=== PATIENT | female | born 1970 | race Caucasian/White ===

== ENCOUNTER 2016-11-25 15:27 | Emergency (ER) | payer MEDICAID, MEDICARE, OTHER ==
[2016-11-25] MEDS ORDERED: ALBUTEROL SULFATE 0.083% NEB 2.5 MG/3 ML AMPUL NEB ONE (16:09)
--- NOTE | 2016-11-25 16:09 | ER Document Report ---
ED Medical Screen (RME) - General Stated Complaint: HEAD ACHE Notes: Patient reports having sinus congestion that started Monday. Has had a bad headache for the last 3 days. Has had a fever on and off, with dizzy spells. Reports swelling on left side of face. Patient denies vomiting or diarrhea. States she has a history of sinus infections. I have greeted and performed a rapid initial assessment of this patient. A comprehensive ED assessment and evaluation of the patient, analysis of test results and completion of the medical decision making process will be conducted by additional ED providers. TRAVEL OUTSIDE OF THE [place] IN LAST 30 DAYS: No - Related Data Allergies/Adverse Reactions: adhesive [Adhesive] Allergy (Verified 11/25/16 16:08) cephalexin monohydrate [From Keflex] Allergy (Verified 11/25/16 16:08) cholestyramine [From Questran] Allergy (Verified 11/25/16 16:08) ciprofloxacin [From Cipro] Allergy (Verified 11/25/16 16:08) ciprofloxacin HCl [From Cipro] Allergy (Verified 11/25/16 16:08) lanolin alcohols [Wool Alcohols] Allergy (Verified 11/25/16 16:08) latex [Latex] Allergy (Verified 11/25/16 16:08) nickel [Nickel] Allergy (Verified 11/25/16 16:08) Nyhwnlt-Mni-Lix Reductase Inhibitor Allergy (Verified 11/25/16 16:08) Sucrose [From Questran] Allergy (Verified 11/25/16 16:08) Sulfa (Sulfonamide Antibiotics) Allergy (Verified 11/25/16 16:08) trazodone [Trazodone] Allergy (Verified 11/25/16 16:08) Past Medical History - Past Medical History Cardiac Medical History: Reports: Hx Hypercholesterolemia, Hx Hypertension Pulmonary Medical History: Reports: Hx Pneumonia, Hx Sleep Apnea Neurological Medical History: Reports: Hx Migraine, Hx Seizures Endocrine Medical History: Reports: Hx Hypothyroidism Musculoskeltal Medical History: Reports Hx Arthritis, Reports Hx Fibromyalgia Psychiatric Medical History: Reports: Hx Anxiety - Takes clonazepam has been on several other benzos in the past, Hx Attention Deficit Hyperactivity Disorder - Takes Vyvanse Past Surgical History: Reports: Hx Section - x1, Hx Cholecystectomy, Hx Hysterectomy, Hx Orthopedic Surgery - back x2 - Immunizations Hx Diphtheria, Pertussis, Tetanus Vaccination: Yes Physical Exam - Vital signs Vitals: Temp Pulse Resp BP Pulse Ox 100.6 F H 91 16 127/58 H 93 11/25/16 15:47 11/25/16 15:47 11/25/16 15:47 11/25/16 15:47 11/25/16 15:47 - Respiratory Respiratory status: No respiratory distress Breath sounds: Normal - deep breathing causes pt to start coughing. Course - Vital Signs Vital signs: Temp Pulse Resp BP Pulse Ox 100.6 F H 91 16 127/58 H 93 11/25/16 15:47 11/25/16 15:47 11/25/16 15:47 11/25/16 15:47 11/25/16 15:47
[2016-11-25] MEDS ORDERED: ACETAMINOPHEN 325 MG TABLET PO ONE (16:45)
--- NOTE | 2016-11-25 17:11 | ER Document Report ---
ED ENT - General Chief Complaint: Sinus Congestion Stated Complaint: HEAD ACHE Notes: The patient is a 46-year-old female who presents with 1 day of fever, left sided facial swelling, dental pain, dry cough and nasal congestion. She tried using saline spray without much relief of her symptoms. The dental pain started after she had the facial swelling and fever. She denies a cracked tooth , blurry vision, neck stiffness, numbness, tingling, chest pain or shortness of breath. TRAVEL OUTSIDE OF THE [place] IN LAST 30 DAYS: No - Related Data Allergies/Adverse Reactions: adhesive [Adhesive] Allergy (Verified 11/25/16 16:08) cephalexin monohydrate [From Keflex] Allergy (Verified 11/25/16 16:08) cholestyramine [From Questran] Allergy (Verified 11/25/16 16:08) ciprofloxacin [From Cipro] Allergy (Verified 11/25/16 16:08) ciprofloxacin HCl [From Cipro] Allergy (Verified 11/25/16 16:08) lanolin alcohols [Wool Alcohols] Allergy (Verified 11/25/16 16:08) latex [Latex] Allergy (Verified 11/25/16 16:08) nickel [Nickel] Allergy (Verified 11/25/16 16:08) Ligmcby-Zkr-Mif Reductase Inhibitor Allergy (Verified 11/25/16 16:08) Sucrose [From Questran] Allergy (Verified 11/25/16 16:08) Sulfa (Sulfonamide Antibiotics) Allergy (Verified 11/25/16 16:08) trazodone [Trazodone] Allergy (Verified 11/25/16 16:08) Past Medical History - General Information source: Patient - Social History Smoking Status: Current Every Day Smoker Chew tobacco use (# tins/day): No Frequency of alcohol use: None Drug Abuse: None Family History: Reviewed & Not Pertinent Patient has suicidal ideation: No Patient has homicidal ideation: No - Past Medical History Cardiac Medical History: Reports: Hx Hypercholesterolemia, Hx Hypertension Pulmonary Medical History: Reports: Hx Pneumonia, Hx Sleep Apnea Neurological Medical History: Reports: Hx Migraine, Hx Seizures Endocrine Medical History: Reports: Hx Hypothyroidism Renal/ Medical History: Denies: Hx Peritoneal Dialysis Musculoskeltal Medical History: Reports Hx Arthritis, Reports Hx Fibromyalgia Psychiatric Medical History: Reports: Hx Anxiety - Takes clonazepam has been on several other benzos in the past, Hx Attention Deficit Hyperactivity Disorder - Takes Madhuri Past Surgical History: Reports: Hx Section - x1, Hx Cholecystectomy, Hx Hysterectomy, Hx Orthopedic Surgery - back x2 - Immunizations Hx Diphtheria, Pertussis, Tetanus Vaccination: Yes Review of Systems - Review of Systems Notes: REVIEW OF SYSTEMS: CONSTITUTIONAL: -fevers, -chills EENT: -eye pain, -difficulty swallowing, +nasal congestion, +dental pain CARDIOVASCULAR: -chest pain, -syncope. RESPIRATORY: +cough, -SOB GASTROINTESTINAL: -abdominal pain, -nausea, -vomiting, -diarrhea GENITOURINARY: -dysuria, -hematuria MUSCULOSKELETAL: -back pain, -neck pain SKIN: -rash or skin lesions. HEMATOLOGIC: -easy bruising or bleeding. LYMPHATIC: -swollen, enlarged glands. NEUROLOGICAL: -altered mental status or loss of consciousness, -headache, - neurologic symptoms PSYCHIATRIC: -anxiety, -depression. ALL OTHER SYSTEMS REVIEWED AND NEGATIVE. Physical Exam - Vital signs Vitals: Temp Pulse Resp BP Pulse Ox 100.6 F H 91 16 127/58 H 93 11/25/16 15:47 11/25/16 15:47 11/25/16 15:47 11/25/16 15:47 11/25/16 15:47 - Notes Notes: PHYSICAL EXAMINATION: GENERAL: Well-appearing, well-nourished and in no acute distress. HEAD: Atraumatic, normocephalic. EYES: Pupils equal round and reactive to light, extraocular movements intact, sclera anicteric, conjunctiva are normal. ENT: Left-sided maxillary sinus tenderness and swelling, nares patent, oropharynx clear without exudates. Moist mucous membranes. NECK: Normal range of motion, supple without lymphadenopathy LUNGS: Breath sounds clear to auscultation bilaterally and equal. No wheezes rales or rhonchi. HEART: Regular rate and rhythm without murmurs ABDOMEN: Soft, nontender, normoactive bowel sounds. No guarding, no rebound. No masses appreciated. EXTREMITIES: Normal range of motion, no pitting or edema. No cyanosis. NEUROLOGICAL: Cranial nerves grossly intact. Normal speech, normal gait. Normal sensory, motor, and reflex exams. PSYCH: Normal mood, normal affect. SKIN: Warm, Dry, normal turgor, no rashes or lesions noted. Course - Re-evaluation Re-evalutation: Patient appears well. No evidence of dental abscess. With fevers, sinus congestion and maxillary sinus tenderness, will treat for sinusitis causing fever with antibiotics. Instructed her about sinus rinses and following up with primary care physician. - Vital Signs Vital signs: Temp Pulse Resp BP Pulse Ox 99.9 F 95 16 125/71 92 11/25/16 17:50 11/25/16 17:50 11/25/16 17:50 11/25/16 17:50 11/25/16 17:50 - Laboratory Result Diagrams: 11/25/16 16:50 11/25/16 16:50 Laboratory results interpreted by me: 11/25/16 11/25/16 16:50 16:50 WBC 10.7 H Glucose 130 H AST 58 H ALT 75 H Discharge - Discharge Clinical Impression: Sinus infection Qualifiers: Sinusitis location: unspecified location Chronicity: unspecified Qualified Code (s): J32.9 - Chronic sinusitis, unspecified Condition: Stable Disposition: HOME, SELF-CARE Additional Instructions: Take the full course of antibiotics. Follow-up with the dentist. Use the sinus rinse and take Tylenol and Motrin to help with any fevers and pain. Sinusitis You have sinusitis, an infection of the sinus cavities of the face. The sinuses are air-filled chambers which open into the inside of the nose. Bacteria and pus fill a sinus, causing pain, drainage, and fever. Sinusitis is treated with antibiotics. Often, expectorants (to thin the sinus mucous) or decongestants (to reduce swelling) are prescribed as well. Healing requires seven to 10 days. Avoid chemical fumes, pollens, dusts, and smoke (especially cigarette smoke ). Keep the air humidified in your bedroom and work area and take plenty of liquids by mouth. This condition can be serious if the infection spreads. If your symptoms worsen, or if you develop severe headache, high fever, stiff neck, or a rash, you must call the doctor or return for re-evaluation. Prescriptions: Clindamycin HCl 300 mg PO Q8H 7 Days Referrals: SONIDO FELIPE PA [Primary Care Provider] - Follow up as needed
[2016-11-25 17:16] LABS: ABSOLUTE BASOPHILS # (AUTO) 0.1 10^3/uL (0.0-0.2); ABSOLUTE EOSINOPHILS # (AUTO) 0.1 10^3/uL (0.0-0.6); ABSOLUTE LYMPHOCYTES (AUTO) 1.8 10^3/uL (0.5-4.7); ABSOLUTE MONOCYTES (AUTO) 0.8 10^3/uL (0.1-1.4); ABSOLUTE NEUT (AUTO) 7.9 10^3/uL (1.7-8.2); BASOPHILS % (AUTO) 0.5 % (0-2); EOSINOPHILS % (AUTO) 0.9 % (0-6); HEMATOCRIT 40.2 % (36.0-47.0); HEMOGLOBIN 13.9 g/dL (12.0-15.5); HGB HCT DIFFERENCE 1.5; LYMPHOCYTES % (AUTO) 17.2 % (13-45); MEAN CORPUSCULAR HEMOGLOBIN 30.5 pg (27.0-33.4); MEAN CORPUSCULAR HGB CONC 34.5 g/dL (32.0-36.0); MEAN CORPUSCULAR VOLUME 88 fl (80-97); MONOCYTES % (AUTO) 7.8 % (3-13); RED BLOOD COUNT 4.56 10^6/uL (3.72-5.28); RED CELL DISTRIBUTION WIDTH 12.8 % (11.5-14.0); SEGMENTED NEUTROPHILS % (AUTO) 73.6 % (42-78); WHITE BLOOD COUNT 10.7 10^3/uL (4.0-10.5)
[2016-11-25 17:17] LABS: ALANINE AMINOTRANSFERASE 75 U/L (9-52); ALKALINE PHOSPHATASE 94 U/L (38-126); ANION GAP 16 (5-19); ASPARTATE AMINO TRANSFERASE 58 U/L (14-36); BILIRUBIN,TOTAL 0.3 mg/dL (0.2-1.3); BLOOD UREA NITROGEN 15 mg/dL (7-20); CALCIUM 9.2 mg/dL (8.4-10.2); CARBON DIOXIDE 23 mmol/L (22-30); CHLORIDE 99 mmol/L (98-107); CREATININE RESULT 0.73 mg/dL (0.52-1.25); GLUCOSE 130 mg/dL (75-110); TOTAL PROTEIN 6.6 g/dL (6.3-8.2)
[2016-11-25] MEDS ORDERED: CLINDAMYCIN HCL 150 MG CAPSULE PO ONE (17:35)
[2016-11-25 17:55] VITALS: BP 125/71
== END 2016-11-25 17:55 | disposition home or self-care (01) ==
LOC: ER 15:27
DX: J32.9 Chronic sinusitis, unspecified (principal); R50.9 Fever, unspecified; K08.89 Other specified disorders of teeth and supporting structures; R05 Cough; R09.81 Nasal congestion; F17.200 Nicotine dependence, unspecified, uncomplicated; I10 Essential (primary) hypertension; Z91.048 Other nonmedicinal substance allergy status; Z88.1 Allergy status to other antibiotic agents; Z91.040 Latex allergy status; Z88.8 Allergy status to other drugs, medicaments and biological substances; Z88.2 Allergy status to sulfonamides; Z87.01 Personal history of pneumonia (recurrent)
CPT/HCPCS: 94640; 99283; 36415; 85025; 80053; 71020; A9270 ×3

== ENCOUNTER 2016-11-27 22:19 | Inpatient (IN) | payer MEDICARE ==
--- NOTE | 2016-11-27 22:31 | ER Document Report ---
ED Respiratory Problem - General Stated Complaint: DIFFICULTY BREATHING Time seen by provider: 22:31 Mode of Arrival: Medic Information source: Patient TRAVEL OUTSIDE OF THE [place] IN LAST 30 DAYS: No - HPI Patient complains to provider of: Cough, Short of breath Onset: Last week Duration: Worse/persistent Quality of pain: No pain Severity: Severe Context: Smoker Short of Breath: Severe Chest pain/discomfort: Tightness Cough: Nonproductive Associated symptoms: Congestion, Cough, Difficulty breathing, Fever, Short of breath Similar symptoms previously: Yes Recently seen / treated by doctor: Yes Notes: 38-year-old female presents to the emergency room via EMS with complaints of difficulty breathing and nonproductive cough as well as fever that's been worsening over the past week, she was seen in this emergency room recently and placed on antibiotics for dental infection, but reports her respiratory symptoms of gotten significantly worse, she denies any chest pain, no nausea, vomiting or diarrhea, patient is a smoker, patient placed on BiPAP immediately upon arrival, EMS reports they gave breathing treatments, IV Solu-Medrol, IV magnesium 2 g in route - Related Data Allergies/Adverse Reactions: adhesive [Adhesive] Allergy (Verified 11/25/16 16:08) cephalexin monohydrate [From Keflex] Allergy (Verified 11/25/16 16:08) cholestyramine [From Questran] Allergy (Verified 11/25/16 16:08) ciprofloxacin [From Cipro] Allergy (Verified 11/25/16 16:08) ciprofloxacin HCl [From Cipro] Allergy (Verified 11/25/16 16:08) lanolin alcohols [Wool Alcohols] Allergy (Verified 11/25/16 16:08) latex [Latex] Allergy (Verified 11/25/16 16:08) nickel [Nickel] Allergy (Verified 11/25/16 16:08) Eeugfjp-Jgq-Gak Reductase Inhibitor Allergy (Verified 11/25/16 16:08) Sucrose [From Questran] Allergy (Verified 11/25/16 16:08) Sulfa (Sulfonamide Antibiotics) Allergy (Verified 11/25/16 16:08) trazodone [Trazodone] Allergy (Verified 11/25/16 16:08) Past Medical History - General Information source: Patient, Emergency Med Personnel - Social History Smoking Status: Current Every Day Smoker Family History: Reviewed & Not Pertinent - Past Medical History Cardiac Medical History: Reports: Hx Hypercholesterolemia, Hx Hypertension Pulmonary Medical History: Reports: Hx Pneumonia, Hx Sleep Apnea Neurological Medical History: Reports: Hx Migraine, Hx Seizures Endocrine Medical History: Reports: Hx Hypothyroidism Renal/ Medical History: Denies: Hx Peritoneal Dialysis Musculoskeltal Medical History: Reports Hx Arthritis, Reports Hx Fibromyalgia Psychiatric Medical History: Reports: Hx Anxiety - Takes clonazepam has been on several other benzos in the past, Hx Attention Deficit Hyperactivity Disorder - Takes Vyvanse Past Surgical History: Reports: Hx Section - x1, Hx Cholecystectomy, Hx Hysterectomy, Hx Orthopedic Surgery - back x2 - Immunizations Hx Diphtheria, Pertussis, Tetanus Vaccination: Yes Review of Systems - Review of Systems Constitutional: No symptoms reported EENT: No symptoms reported Cardiovascular: No symptoms reported Respiratory: See HPI Gastrointestinal: No symptoms reported Genitourinary: No symptoms reported Female Genitourinary: No symptoms reported Musculoskeletal: No symptoms reported Skin: No symptoms reported Hematologic/Lymphatic: No symptoms reported Neurological/Psychological: No symptoms reported -: Yes All other systems reviewed and negative Physical Exam - Vital signs Vitals: Pulse Ox 96 11/27/16 22:24 Interpretation: Tachycardic, Hypoxic, Tachypneic - General General appearance: Alert In distress: Moderate - HEENT Head: Normocephalic, Atraumatic Eyes: Normal Pupils: PERRL - Respiratory Respiratory status: Respiratory distress Chest status: Nontender Breath sounds: Decreased air movement, Nonproductive cough, Wheezing Chest palpation: Normal - Cardiovascular Rhythm: Regular, Tachycardia Heart sounds: Normal auscultation Murmur: No - Abdominal Inspection: Normal, Obese Distension: No distension Bowel sounds: Normal Tenderness: Nontender Organomegaly: No organomegaly - Back Back: Normal, Nontender - Extremities General upper extremity: Normal inspection, Nontender, Normal color, Normal ROM , Normal temperature General lower extremity: Normal inspection, Nontender, Normal color, Normal ROM , Normal temperature, Normal weight bearing. No: Stevan's sign - Neurological Neuro grossly intact: Yes Cognition: Normal Orientation: AAOx4 Angelita Coma Scale Eye Opening: Spontaneous Angelita Coma Scale Verbal: Oriented Angelita Coma Scale Motor: Obeys Commands [place] Coma Scale Total: 15 Speech: Normal Motor strength normal: LUE, RUE, LLE, RLE Sensory: Normal - Psychological Associated symptoms: Normal affect, Normal mood - Skin Skin Temperature: Warm Skin Moisture: Dry Skin Color: Normal Course - Re-evaluation Re-evalutation: 11/28/16 03:32 Patient reports feeling much better, BiPAP was removed approximately 2 hours after arrival in the department, she was placed on 2 L nasal cannula and she reports doing much better, she does continue to have some mild wheezing bilaterally, chest x-ray is consistent with pneumonia, patient was started on antibiotics and discussed with the hospitalist who agrees to admit for further evaluation and treatment - Vital Signs Vital signs: Temp Pulse Resp BP Pulse Ox 98.0 F 16 102/81 95 11/28/16 03:00 11/28/16 02:01 11/28/16 01:01 11/28/16 03:17 - Laboratory Result Diagrams: 11/27/16 22:30 11/27/16 22:30 Laboratory results interpreted by me: 11/27/16 11/27/16 11/28/16 22:30 22:30 01:00 WBC 16.7 H Seg Neutrophils % 78.2 H Absolute Neutrophils 13.0 H Sodium 136.4 L Glucose 136 H POC Glucose 179 H ALT 56 H - Diagnostic Test Radiology reviewed: Image reviewed, Reports reviewed - Transfer of Care Care transferred to following provider: Dr. Pearl Critical Care Note - Critical Care Note Total time excluding time spent on procedures (mins): 45 Comments: Patient arrived to the emergency room in respiratory distress requiring BiPAP placement, multiple breathing treatments, and admission to the hospital service Discharge - Discharge Clinical Impression: Pneumonia Qualifiers: Pneumonia type: due to unspecified organism Laterality: bilateral Lung location : unspecified part of lung Qualified Code(s): J18.9 - Pneumonia, unspecified organism Acute asthma exacerbation Qualifiers: Asthma severity: moderate persistent Qualified Code(s): J45.41 - Moderate persistent asthma with (acute) exacerbation Condition: Fair Disposition: ADMITTED INPATIENT Admitting Provider: Hospitalist Unit Admitted: Telemetry
[2016-11-27] MEDS ORDERED: MAGNESIUM SULFATE/D5W 1 GM/100 ML RTUPB IV ONE (22:32)
[2016-11-27 22:52] LABS: ABSOLUTE BASOPHILS # (AUTO) 0.1 10^3/uL (0.0-0.2); ABSOLUTE EOSINOPHILS # (AUTO) 0.2 10^3/uL (0.0-0.6); ABSOLUTE LYMPHOCYTES (AUTO) 2.3 10^3/uL (0.5-4.7); BASOPHILS % (AUTO) 0.5 % (0-2); EOSINOPHILS % (AUTO) 1.2 % (0-6); HEMATOCRIT 38.7 % (36.0-47.0); HEMOGLOBIN 13.2 g/dL (12.0-15.5); HGB HCT DIFFERENCE 0.9; LYMPHOCYTES % (AUTO) 13.9 % (13-45); MEAN CORPUSCULAR HEMOGLOBIN 30.1 pg (27.0-33.4); MEAN CORPUSCULAR HGB CONC 34.3 g/dL (32.0-36.0); MEAN CORPUSCULAR VOLUME 88 fl (80-97); MONOCYTES % (AUTO) 6.2 % (3-13); RED BLOOD COUNT 4.41 10^6/uL (3.72-5.28); RED CELL DISTRIBUTION WIDTH 12.7 % (11.5-14.0); SEGMENTED NEUTROPHILS % (AUTO) 78.2 % (42-78); WHITE BLOOD COUNT 16.7 10^3/uL (4.0-10.5)
[2016-11-27 22:53] LABS: VENOUS BLOOD BASE EXCESS -1.4 mmol/L; VENOUS BLOOD HCO3 22.6 mmol/L (20-32); VENOUS BLOOD PCO2 36.1 mmHg (35-63); VENOUS BLOOD PH 7.42 (7.30-7.42)
[2016-11-27 23:05] LABS: ALANINE AMINOTRANSFERASE 56 U/L (9-52); ALKALINE PHOSPHATASE 108 U/L (38-126); ANION GAP 13 (5-19); ASPARTATE AMINO TRANSFERASE 34 U/L (14-36); BILIRUBIN,TOTAL 0.4 mg/dL (0.2-1.3); BLOOD UREA NITROGEN 13 mg/dL (7-20); CALCIUM 9.2 mg/dL (8.4-10.2); CARBON DIOXIDE 25 mmol/L (22-30); CHLORIDE 98 mmol/L (98-107); CREATINE KINASE 43 U/L (30-135); CREATININE RESULT 0.72 mg/dL (0.52-1.25); GLUCOSE 136 mg/dL (75-110); POTASSIUM 4.4 mmol/L (3.6-5.0); SODIUM 136.4 mmol/L (137-145); TOTAL PROTEIN 6.5 g/dL (6.3-8.2)
[2016-11-27] MEDS ORDERED: ALBUTEROL SULFATE 0.083% NEB 2.5 MG/3 ML AMPUL NEB ONE (23:10)
[2016-11-27] MEDS ORDERED: IPRATROPIUM/ALBUTEROL 0.5-2.5 MG/3 ML AMPUL NEB ONE (23:10)
[2016-11-27 23:18] LABS: CREATINE KINASE MB < 0.22 ng/mL (<4.55); TROPONIN I < 0.012 ng/mL
[2016-11-28] MEDS ORDERED: AZITHROMYCIN INJ 500 MG VIAL IV ONE (00:49)
[2016-11-28] MEDS ORDERED: ALBUTEROL SULFATE 0.083% NEB 2.5 MG/3 ML AMPUL NEB ONE (00:49)
[2016-11-28] MEDS ORDERED: DEXTROSE 50%-WATER 25 GM/50 ML DISP.SYRIN IV PRN ×2 (02:21)
[2016-11-28] MEDS ORDERED: GLUCAGON,HUMAN RECOMB 1 MG INJ IM PRN (02:21)
[2016-11-28] MEDS ORDERED: DEXTROSE 40% GEL 15 GM TUBE PO PRN ×2 (02:21)
[2016-11-28] MEDS ORDERED: CEFEPIME 2 GM/D5W RTU 50 ML IV SCH (02:30)
[2016-11-28 03:27] LABS: APPEARANCE,URINE CLEAR; BILIRUBIN,URINE NEGATIVE (NEGATIVE); GLUCOSE, URINE NEGATIVE (NEGATIVE); KETONES,URINE NEGATIVE (NEGATIVE); LEUKOCYTE ESTERASE,URINE NEGATIVE (NEGATIVE); NITRITE,URINE NEGATIVE (NEGATIVE); PROTEIN,URINE NEGATIVE (NEGATIVE); URINE SPECIFIC GRAVITY 1.031; UROBILINOGEN,URINE NEGATIVE mg/dL (<2.0)
[2016-11-28] MEDS ORDERED: INFLUENZA ADLT QUAD (36MOS+) 2016-17 VAC 0.5 ML SYR IM PRN (04:26)
[2016-11-28] MEDS ORDERED: PIPERACILLIN/TAZOBACTAM 4.5 GM VIAL IV ONE (04:42)
--- NOTE | 2016-11-28 05:44 | PDOC H&P ---
History of Present Illness Admission Date/PCP: 11/28/16 02:21 DELANEY MCBRIDE Patient complains of: Shortness of breath and cough History of Present Illness: REINALDO CLARK is a 46 year old female with a past medical history of diabetes , gastroparesis, morbid obesity and tobacco dependence who is had approximately 1 week of nonproductive cough with shortness of breath and fever failing outpatient antibiotics. She denies chest pain palpitations nausea vomiting. In the emergency room she receives BiPAP, albuterol Atrovent, Solu-Medrol and magnesium with little improvement and is referred to the hospitalist for admission. Patient denies influenza vaccination denies infectious contacts. A CT of the chest shows bilateral multifocal multilobar pneumonia. Past Medical History Cardiac Medical History: Reports: Hyperlipidema, Hypertension Pulmonary Medical History: Reports: Pneumonia, Sleep Apnea Neurological Medical History: Reports: Migraine, Seizures Endocrine Medical History: Reports: Diabetes Mellitus Type 2, Hypothyroidism, Obesity, Other GI Medical History: Reports: Other - Gastroparesis Musculoskeltal Medical History: Reports: Arthritis, Fibromyalgia Psychiatric Medical History: Reports: Attention Deficit Hyperactivity Disorder - Takes Vyvanse Denies: Depression Past Surgical History Past Surgical History: Reports: Section - x1, Cholecystectomy, Hysterectomy, Orthopedic Surgery - back x2 Social History Information Source: Patient Lives with: Family Smoking Status: Current Every Day Smoker Frequency of Alcohol Use: None Hx Recreational Drug Use: No Drugs: None Hx Prescription Drug Abuse: No - Advance Directive Resuscitation Status: Full Code Family History Family History: DM Parental Family History Reviewed: Yes Children Family History Reviewed: Yes Sibling(s) Family History Reviewed.: Yes Medication/Allergy Home Medications: Amphetamine Sulfate [Evekeo] 20 mg PO BID 10/24/15 Clonazepam [Klonopin 1 mg Tablet] 1 mg PO QID 10/24/15 Levothyroxine Sodium [Synthroid 0.025 mg Tablet] 25 mcg PO DAILY 10/24/15 Lisinopril/Hydrochlorothiazide [Lisinopril-Hctz 20-12.5 mg Tab] 1 tab PO DAILY 10/24/15 Oxycodone HCl 5 mg PO QID 10/24/15 Pregabalin [Lyrica 50 mg Capsule] 150 mg PO BID 10/24/15 Rosuvastatin Calcium [Crestor 5 mg Tablet] 5 mg PO DAILY 10/24/15 Verapamil HCl [Verapamil ER] 480 mg PO QPM 10/24/15 Zolpidem Tartrate [Ambien] 10 mg PO QPM 10/24/15 Albuterol Sulfate [Proair HFA Inhalation Aerosol 8.5 gm MDI] 2 puff IH Q4H PRN # 1 mdi 12/28/15 Prednisone [Deltasone 20 mg Tablet] 3 tab PO DAILY 5 Days 12/28/15 Epinephrine [Epipen 2-Micheal] 0.3 mg IJ ONCE PRN #2 unit 01/08/16 Clindamycin HCl 300 mg PO Q8H 7 Days 11/25/16 Allergies/Adverse Reactions: adhesive [Adhesive] Allergy (Verified 11/25/16 16:08) cephalexin monohydrate [From Keflex] Allergy (Verified 11/25/16 16:08) cholestyramine [From Questran] Allergy (Verified 11/25/16 16:08) ciprofloxacin [From Cipro] Allergy (Verified 11/25/16 16:08) ciprofloxacin HCl [From Cipro] Allergy (Verified 11/25/16 16:08) lanolin alcohols [Wool Alcohols] Allergy (Verified 11/25/16 16:08) latex [Latex] Allergy (Verified 11/25/16 16:08) nickel [Nickel] Allergy (Verified 11/25/16 16:08) Julbgzb-Siy-Vgr Reductase Inhibitor Allergy (Verified 11/25/16 16:08) Sucrose [From Questran] Allergy (Verified 11/25/16 16:08) Sulfa (Sulfonamide Antibiotics) Allergy (Verified 11/25/16 16:08) trazodone [Trazodone] Allergy (Verified 11/25/16 16:08) Review of Systems Constitutional: PRESENT: chills, fatigue, fever(s) Eyes: ABSENT: visual disturbances Ears: ABSENT: hearing changes Cardiovascular: ABSENT: chest pain, dyspnea on exertion, edema, orthropnea, palpitations Respiratory: PRESENT: cough, dyspnea, sputum Gastrointestinal: PRESENT: bloating, nausea Genitourinary: ABSENT: dysuria, hematuria Musculoskeletal: ABSENT: joint swelling Integumentary: ABSENT: rash, wounds Neurological: ABSENT: abnormal gait, abnormal speech, confusion, dizziness, focal weakness, syncope Psychiatric: ABSENT: anxiety, depression, homidical ideation, suicidal ideation Endocrine: ABSENT: cold intolerance, heat intolerance, polydipsia, polyuria Hematologic/Lymphatic: ABSENT: easy bleeding, easy bruising Physical Exam Vital Signs: Temp Pulse Resp BP Pulse Ox 97.3 F 78 24 H 113/67 93 11/28/16 03:50 11/28/16 04:16 11/28/16 04:00 11/28/16 03:50 11/28/16 04:00 Intake & Output 11/26/16 11/27/16 11/28/16 11:59 11:59 11:59 Weight 114 kg General appearance: PRESENT: cooperative, disheveled, mild distress, morbidly obese, other - Diaphoretic Head exam: PRESENT: atraumatic, normocephalic Eye exam: PRESENT: conjunctiva pink, EOMI, PERRLA. ABSENT: scleral icterus Ear exam: PRESENT: normal external ear exam Mouth exam: PRESENT: moist, tongue midline Neck exam: ABSENT: carotid bruit, JVD, lymphadenopathy, thyromegaly Respiratory exam: PRESENT: accessory muscle use, prolonged expiratory phas, rales, retraction, rhonchi, tachypnea. ABSENT: stridor Cardiovascular exam: PRESENT: RRR. ABSENT: diastolic murmur, rubs, systolic murmur Pulses: PRESENT: normal dorsalis pedis pul GI/Abdominal exam: PRESENT: normal bowel sounds, soft. ABSENT: distended, guarding, mass, organolmegaly, rebound, tenderness Rectal exam: PRESENT: deferred Extremities exam: PRESENT: full ROM. ABSENT: calf tenderness, clubbing, pedal edema Neurological exam: PRESENT: alert, awake, oriented to person, oriented to place , oriented to time, oriented to situation, CN II-XII grossly intact. ABSENT: motor sensory deficit Psychiatric exam: PRESENT: appropriate affect, normal mood. ABSENT: homicidal ideation, suicidal ideation Skin exam: PRESENT: dry, intact, warm. ABSENT: cyanosis, rash Results Laboratory Results: 11/28/16 03:05 Urine Color YELLOW Urine Appearance CLEAR Urine pH 5.0 Ur Specific [place] 1.031 Urine Protein NEGATIVE Urine Glucose (UA) NEGATIVE Urine Ketones NEGATIVE Urine Blood NEGATIVE Urine Nitrite NEGATIVE Ur Leukocyte Esterase NEGATIVE Urine WBC (Auto) 0 Urine RBC (Auto) 0 Impressions: Chest X-Ray 11/27/16 22:31 IMPRESSION: DEVELOPING PERIHILAR DENSITIES, POSSIBLY DEVELOPING PNEUMONIA. THERE IS ALSO HILAR FULLNESS, CANNOT RULE OUT ADENOPATHY. Chest/Abdomen CTA 11/28/16 00:48 IMPRESSION: 1. NORMAL CTA OF THE CHEST. NO PULMONARY EMBOLI. 2. FAIRLY EXTENSIVE BILATERAL PATCHY INFILTRATES, MOST CONSISTENT WITH MULTIFOCAL PNEUMONIA. Assessment & Plan - Diagnosis (1) Pneumonia Qualifiers: Pneumonia type: due to unspecified organism Laterality: bilateral Lung location: unspecified part of lung Qualified Code(s): J18.9 - Pneumonia , unspecified organism Is this a current diagnosis for this admission?: YesPlan: Complicated by COPD and diabetes patient is febrile septic and toxic appearing should be covered with cefepime and Zosyn empirically with follow-up of blood and sputum culture, CBC and chemistry supportive BiPAP albuterol and Atrovent (2) COPD exacerbation Is this a current diagnosis for this admission?: YesPlan: Incentive spirometry and please see above (3) Diabetes 1.5, managed as type 2 Is this a current diagnosis for this admission?: YesPlan: Home regiment with sliding scale (4) Tobacco dependence Is this a current diagnosis for this admission?: YesPlan: Tobacco Dependence patient received tobacco cessation counseling and offered nicotine replacement options - Time Time Spent: 30 to 50 Minutes - Inpatient Certification Medical Necessity: Need Close Monitoring Due to Risk of Patient Decompensation
[2016-11-28] MEDS: PIPERACILLIN SODIUM/TAZOBACTAM 4.5 GM in NORMAL SALINE 100 ML IV SCH ×4 (06:09→23:45)
[2016-11-28] MEDS: DILTIAZEM HCL 60 MG TABLET PO SCH ×4 (06:09→23:45)
[2016-11-28] MEDS: HEPARIN SOD (PORCINE) 5,000 UNIT/ML 1 ML SYRINGE SUBCUT SCH ×3 (06:10→21:26)
[2016-11-28] MEDS: INSULIN LISPRO 100 UNIT/ML 3 ML VIAL SUBCUT PRN ×3 (08:12→16:15)
[2016-11-28] MEDS: IPRATROPIUM/ALBUTEROL 0.5-2.5 MG/3 ML AMPUL NEB SCH ×3 (08:38→19:51)
[2016-11-28] MEDS: GUAIFENESIN 600 MG TABLET.SA PO SCH ×2 (09:48→21:12)
[2016-11-28] MEDS: NICOTINE 14 MG/24 HR PATCH.TD24 TD SCH (09:48)
[2016-11-28] MEDS: FLUTICASONE NASAL SPRAY 50 MCG/SPRY 120 SPRAY/16 GM NASL SCH ×2 (09:49→21:17)
[2016-11-28] MEDS: LORATADINE 10 MG TABLET PO SCH (09:49)
[2016-11-28] MEDS: IPRATROPIUM/ALBUTEROL 0.5-2.5 MG/3 ML AMPUL NEB PRN ×2 (10:02→23:30)
[2016-11-28] MEDS: CEFEPIME HCL 2 GM in DEXTROSE 5%-WATER 50 ML IV SCH ×2 (11:21→21:12)
--- NOTE | 2016-11-28 11:48 | PDOC PROGRESS REPORT ---
Subjective Progress Note for:: 11/28/16 Subjective:: Complains of a productive cough. Physical Exam Vital Signs: Temp Pulse Resp BP Pulse Ox 97.3 F 95 22 H 121/68 94 11/28/16 03:50 11/28/16 10:02 11/28/16 10:02 11/28/16 07:45 11/28/16 10:02 Intake & Output 11/27/16 11/28/16 11/29/16 06:59 06:59 06:59 Intake Total 10 Balance 10 Weight 114 kg General appearance: PRESENT: no acute distress Eye exam: PRESENT: conjunctiva pink. ABSENT: scleral icterus Ear exam: PRESENT: normal external ear exam Mouth exam: PRESENT: moist, tongue midline Respiratory exam: PRESENT: wheezes - Bilateral expiratory wheezes. ABSENT: rales, rhonchi Cardiovascular exam: PRESENT: RRR. ABSENT: diastolic murmur, rubs, systolic murmur GI/Abdominal exam: PRESENT: normal bowel sounds, soft. ABSENT: distended, guarding, mass, organolmegaly, rebound, tenderness Extremities exam: ABSENT: calf tenderness, clubbing, pedal edema Neurological exam: PRESENT: alert, awake, oriented to person, oriented to place , oriented to time, oriented to situation, CN II-XII grossly intact. ABSENT: motor sensory deficit Psychiatric exam: PRESENT: appropriate affect Skin exam: PRESENT: dry, intact, warm. ABSENT: cyanosis, rash Results Laboratory Results: 11/28/16 03:05 Urine Color YELLOW Urine Appearance CLEAR Urine pH 5.0 Ur Specific [place] 1.031 Urine Protein NEGATIVE Urine Glucose (UA) NEGATIVE Urine Ketones NEGATIVE Urine Blood NEGATIVE Urine Nitrite NEGATIVE Ur Leukocyte Esterase NEGATIVE Urine WBC (Auto) 0 Urine RBC (Auto) 0 Impressions: Chest X-Ray 11/27/16 22:31 IMPRESSION: DEVELOPING PERIHILAR DENSITIES, POSSIBLY DEVELOPING PNEUMONIA. THERE IS ALSO HILAR FULLNESS, CANNOT RULE OUT ADENOPATHY. Chest/Abdomen CTA 11/28/16 00:48 IMPRESSION: 1. NORMAL CTA OF THE CHEST. NO PULMONARY EMBOLI. 2. FAIRLY EXTENSIVE BILATERAL PATCHY INFILTRATES, MOST CONSISTENT WITH MULTIFOCAL PNEUMONIA. Assessment & Plan - Diagnosis (1) Pneumonia Qualifiers: Pneumonia type: due to unspecified organism Laterality: bilateral Lung location: unspecified part of lung Qualified Code(s): J18.9 - Pneumonia , unspecified organism Is this a current diagnosis for this admission?: YesPlan: Patient has community-acquired pneumonia, probable gram-positive cocci as the cause. Patient has failed outpatient antibiotics and has been started on cefepime and Zosyn. She reports that she feels better than yesterday. (2) COPD exacerbation Is this a current diagnosis for this admission?: Yes (3) Diabetes 1.5, managed as type 2 Is this a current diagnosis for this admission?: YesPlan: Blood sugars have ranged from 179-248 (4) Tobacco dependence Is this a current diagnosis for this admission?: Yes (5) Seizure Is this a current diagnosis for this admission?: YesPlan: Continue with her outpatient antiepileptics - Time Time Spent with patient: 25-34 minutes - Inpatient Certification Medical Necessity: Need for IV Antibiotics
--- NOTE | 2016-11-28 12:41 | Physician Advisory Note ---
Physician Advisor ProgressNote .: Pursuant to the plan for [facility], I have reviewed the medical record for this patient. Physician Advisor Statement: Possible documentation opportunities if attending agrees: 1. "Acute Hypoxemic REspiratory Failure with associated respiratory distress, accessory muscle use, labored breathing, in ED, with O2 sats as low as 94% on 40 % FiO2 while on Bipap (P/F ratio 183, equivalent to sat <<85% RA)" 2. ? - "Pneumonia, panlobar, suspect possible gram-negative given COPD/DM..." - covering with cefepime/Zosyn. 3. "possible sepsis, present on adm, due to PNA, ruled out" (or ...?) 4. "mild hyponatremia, likely due to intravascular volume depletion due to resp distres-caused poor po intake" As always, if concerned about any unstable VS or abnormal labs, please comment on them & note what doing about them, & please document each day the potential clinical problems you are concerned could occur if pt not kept in hospital for tx at this time. Status: Morbidly obese pt w/MANDY, DM 1.5/gastroparesis, tobacco dependence, HTN with cough/SOB/Fever, worsening despite outpt abx, then even after 6nebs, IV Solumedrol, & IV Mag with EMS, was still having distress & labored breathing on arrival. Came in w/HR 94, RR22, WBC 16.7, Na 136.4, multilobar PNA by CXR. Could be expected to require more than 1 night of tx to stabilize sufficiently for outpt f/u. Even after 1st MN of Inpatient hospital care, she continues to have ongoing Ac Resp Failure with only 95% sat on 40% FiO2 w/Bipap, then O2 sats 92% & 92% on 3L , all of which give P/F ratio of around 200, still markedly abnormal for this pt who does not require O2 at baseline. Tx in inpatient hospital setting medically reasonable & necessary to protect pt' s health, safety, & medical condition. Approp for Inpt status. Thanks for your help with documentation accuracy/specificity improvement! Aleida Mccarthy MD [facility] Physician Advisor, Fellow of Hospital Medicine
--- NOTE | 2016-11-28 18:36 | EKG REPORT ---
SEVERITY:- NORMAL ECG - SINUS RHYTHM : Confirmed by: Santiago Humphries MD 28-Nov-2016 18:35:46
[2016-11-28] MEDS: PREGABALIN 100 MG CAPSULE PO SCH (21:26)
[2016-11-28] MEDS ORDERED: PROPRANOLOL HCL 20 MG TABLET PO ONE (21:30)
[2016-11-29] MEDS: ACETAMINOPHEN 325 MG TABLET PO PRN (00:35)
[2016-11-29] MEDS: IPRATROPIUM/ALBUTEROL 0.5-2.5 MG/3 ML AMPUL NEB SCH ×4 (01:49→19:48)
[2016-11-29] MEDS: IPRATROPIUM/ALBUTEROL 0.5-2.5 MG/3 ML AMPUL NEB PRN (05:04)
[2016-11-29] MEDS ORDERED: HALOPERIDOL LACTATE INJ 5 MG/1 ML VIAL IV ONE (05:27)
[2016-11-29] MEDS ORDERED: HALOPERIDOL LACTATE INJ 5 MG/1 ML VIAL ONE (05:32)
[2016-11-29] MEDS: DILTIAZEM HCL 60 MG TABLET PO SCH (05:42)
[2016-11-29] MEDS: PIPERACILLIN SODIUM/TAZOBACTAM 4.5 GM in NORMAL SALINE 100 ML IV SCH (05:42)
[2016-11-29] MEDS: HEPARIN SOD (PORCINE) 5,000 UNIT/ML 1 ML SYRINGE SUBCUT SCH ×3 (05:42→21:30)
[2016-11-29 06:09] LABS: ANION GAP 15 (5-19); BLOOD UREA NITROGEN 11 mg/dL (7-20); CALCIUM 9.7 mg/dL (8.4-10.2); CARBON DIOXIDE 25 mmol/L (22-30); CHLORIDE 103 mmol/L (98-107); CREATININE RESULT 0.59 mg/dL (0.52-1.25); GLUCOSE 113 mg/dL (75-110); POTASSIUM 4.8 mmol/L (3.6-5.0); SODIUM 143.2 mmol/L (137-145)
[2016-11-29] MEDS ORDERED: (PENDING PHARMACY ID) (Lisinopril/Hydrochlorothiazide [Lisinopril-Hctz 20-12.5 Mg Tab] 1 E PO SCH (08:00)
[2016-11-29] MEDS: LISINOPRIL 10 MG TABLET PO SCH (08:35)
[2016-11-29] MEDS: HYDROCHLOROTHIAZIDE 12.5 MG CAPSULE PO SCH (08:36)
[2016-11-29] MEDS: METFORMIN HCL 500 MG TABLET PO SCH ×2 (08:37→17:22)
[2016-11-29] MEDS: DULOXETINE HCL 30 MG CAPSULE.DR PO SCH (08:48)
[2016-11-29] MEDS: FLUTICASONE NASAL SPRAY 50 MCG/SPRY 120 SPRAY/16 GM NASL SCH ×2 (08:48→21:27)
[2016-11-29] MEDS: LORATADINE 10 MG TABLET PO SCH (08:49)
[2016-11-29] MEDS: PREGABALIN 100 MG CAPSULE PO SCH ×2 (08:49→21:28)
[2016-11-29] MEDS: GUAIFENESIN 600 MG TABLET.SA PO SCH ×2 (08:50→21:28)
[2016-11-29] MEDS: NICOTINE 14 MG/24 HR PATCH.TD24 TD SCH ×2 (08:54→15:32)
[2016-11-29] MEDS ORDERED: HYDROXYZINE PAMOATE 25 MG CAPSULE PO PRN (09:08)
[2016-11-29] MEDS ORDERED: PROPRANOLOL HCL 10 MG TABLET PO PRN (09:08)
--- NOTE | 2016-11-29 09:18 | PDOC PROGRESS REPORT ---
Subjective Progress Note for:: 11/29/16 Subjective:: Patient reports that she is not significantly improved. She feels anxious however. Patient reports she is not on her usual home medications. Denies any fever. No diarrhea. No pleurisy. Shortness of breath is still progressing, wheezing resolved. Physical Exam Vital Signs: Temp Pulse Resp BP Pulse Ox 97.7 F 80 20 132/78 H 91 L 11/29/16 07:23 11/29/16 08:17 11/29/16 08:17 11/29/16 07:23 11/29/16 08:17 Intake & Output 11/28/16 11/29/16 11/30/16 06:59 06:59 06:59 Intake Total 10 1690 Balance 10 1690 Weight 114 kg 115 kg General appearance: PRESENT: no acute distress, cooperative, obese Head exam: PRESENT: normocephalic Eye exam: PRESENT: EOMI Mouth exam: PRESENT: moist, neck supple Neck exam: ABSENT: JVD Respiratory exam: PRESENT: rhonchi - Occasional bilateral. ABSENT: wheezes Cardiovascular exam: PRESENT: RRR. ABSENT: gallop GI/Abdominal exam: PRESENT: normal bowel sounds, soft. ABSENT: tenderness Extremities exam: ABSENT: pedal edema Neurological exam: PRESENT: alert, awake, oriented to situation Psychiatric exam: PRESENT: anxious Skin exam: PRESENT: dry, warm. ABSENT: cyanosis Results Laboratory Results: 11/29/16 04:54 11/29/16 04:54 Sodium 143.2 Potassium 4.8 Chloride 103 Carbon Dioxide 25 Anion Gap 15 BUN 11 Creatinine 0.59 Est GFR ( Amer) > 60 Est GFR (Non-Af Amer) > 60 Glucose 113 H Calcium 9.7 Impressions: Chest X-Ray 11/27/16 22:31 IMPRESSION: DEVELOPING PERIHILAR DENSITIES, POSSIBLY DEVELOPING PNEUMONIA. THERE IS ALSO HILAR FULLNESS, CANNOT RULE OUT ADENOPATHY. Chest/Abdomen CTA 11/28/16 00:48 IMPRESSION: 1. NORMAL CTA OF THE CHEST. NO PULMONARY EMBOLI. 2. FAIRLY EXTENSIVE BILATERAL PATCHY INFILTRATES, MOST CONSISTENT WITH MULTIFOCAL PNEUMONIA. Assessment & Plan - Diagnosis (1) Pneumonia Qualifiers: Pneumonia type: due to unspecified organism Laterality: bilateral Lung location: unspecified part of lung Qualified Code(s): J18.9 - Pneumonia , unspecified organism Is this a current diagnosis for this admission?: Yes (2) COPD exacerbation Is this a current diagnosis for this admission?: Yes (3) Diabetes 1.5, managed as type 2 Is this a current diagnosis for this admission?: Yes (4) Seizure Is this a current diagnosis for this admission?: Yes (5) Diabetic gastroparesis Is this a current diagnosis for this admission?: Yes (6) Obesity Qualifiers: Obesity type: unspecified obesity type Obesity severity: unspecified obesity severity Qualified Code(s): E66.9 - Obesity, unspecified Is this a current diagnosis for this admission?: Yes (7) Hypertension Qualifiers: Hypertension type: essential hypertension Qualified Code(s): I10 - Essential (primary) hypertension Is this a current diagnosis for this admission?: Yes (8) Hyperlipidemia Qualifiers: Hyperlipidemia type: unspecified Qualified Code(s): E78.5 - Hyperlipidemia, unspecified Is this a current diagnosis for this admission?: Yes (9) ADHD (attention deficit hyperactivity disorder) Qualifiers: Attention deficit-hyperactivity disorder type: unspecified Qualified Code(s): F90.9 - Attention-deficit hyperactivity disorder, unspecified type Is this a current diagnosis for this admission?: Yes (10) Hypothyroidism Qualifiers: Hypothyroidism type: acquired Qualified Code(s): E03.9 - Hypothyroidism, unspecified Is this a current diagnosis for this admission?: Yes (11) Fibromyalgia Is this a current diagnosis for this admission?: Yes (12) Migraine headache Qualifiers: Migraine type: unspecified Status migrainosus presence: without status migrainosus Intractability: not intractable Qualified Code(s): G43.909 - Migraine, unspecified, not intractable, without status migrainosus Is this a current diagnosis for this admission?: Yes (13) Obstructive sleep apnea Is this a current diagnosis for this admission?: Yes - Time Time Spent with patient: 25-34 minutes - Plan Summary Plan Summary: Continue steroids and antibiotics. Continue oxygen supplementation and monitor WBC. Continue bronchodilators. We will renew her anxiety medications, as well as antihypertensive medications. We will discontinue Cardizem. Decrease intravenous fluids. Continue supportive care.
[2016-11-29] MEDS ORDERED: LEVOTHYROXINE SODIUM 0.025 MG TABLET PO ONE (09:30)
[2016-11-29] MEDS ORDERED: METHYLPHENIDATE HCL 5 MG TABLET PO SCH (10:00)
[2016-11-29] MEDS ORDERED: METHYLPHENIDATE HCL 10 MG PO SCH ×2 (10:00→11:00)
[2016-11-29] MEDS ORDERED: OXYCODONE HCL IR 5 MG TABLET PO PRN ×2 (10:00→23:55)
[2016-11-29] MEDS ORDERED: OXYMORPHONE HCL 20 MG PO SCH (10:00)
[2016-11-29] MEDS: LORAZEPAM INJ 2 MG/1 ML VIAL IV PRN ×2 (10:15→17:26)
[2016-11-29] MEDS: CEFEPIME HCL 2 GM in DEXTROSE 5%-WATER 50 ML IV SCH ×2 (10:34→21:28)
[2016-11-29] MEDS: GUAIFENESIN SYRP 200 MG/10 ML UDC PO PRN ×2 (12:49→17:31)
[2016-11-29] MEDS ORDERED: VERAPAMIL HCL 240 MG TABLET.SA PO SCH (18:00)
[2016-11-29] MEDS ORDERED: (PENDING PHARMACY ID) (Rosuvastatin Calcium [Crestor 5 Mg Tablet] 5 MG) PO SCH (18:00)
[2016-11-29] MEDS: ATORVASTATIN CALCIUM 10 MG TABLET PO SCH (21:30)
[2016-11-29] MEDS ORDERED: ATORVASTATIN CALCIUM 10 MG TABLET PO SCH (22:00)
[2016-11-29] MEDS ORDERED: METHYLPREDNISOLONE INJ 125 MG/2 ML SDV IV ONE (23:45)
[2016-11-29] MEDS ORDERED: LORAZEPAM INJ 2 MG/1 ML VIAL IV PRN (23:55)
[2016-11-30] MEDS ORDERED: LORAZEPAM INJ 2 MG/1 ML VIAL ONE (00:18)
[2016-11-30] MEDS: ALBUTEROL SULFATE 0.083% NEB 2.5 MG/3 ML AMPUL NEB PRN ×2 (00:20→12:38)
[2016-11-30 00:23] LABS: ARTERIAL BLOOD BASE EXCESS -6.3 mmol/L; ARTERIAL BLOOD O2 SATURATION 91.2 % (94-98)
[2016-11-30] MEDS ORDERED: GENTAMICIN SULFATE 0 MG in DEXTROSE 5%-WATER 100 ML IV NR (01:00)
[2016-11-30] MEDS ORDERED: VANCOMYCIN HCL 0 MG in DEXTROSE 5%-WATER 250 ML IV NR (01:00)
[2016-11-30 01:11] LABS: HEMATOCRIT 38.9 % (36.0-47.0); HEMOGLOBIN 13.5 g/dL (12.0-15.5); HGB HCT DIFFERENCE 1.6; MEAN CORPUSCULAR HEMOGLOBIN 30.2 pg (27.0-33.4); MEAN CORPUSCULAR HGB CONC 34.6 g/dL (32.0-36.0); MEAN CORPUSCULAR VOLUME 87 fl (80-97); RED BLOOD COUNT 4.45 10^6/uL (3.72-5.28)
[2016-11-30 01:24] LABS: ANION GAP 16 (5-19); BLOOD UREA NITROGEN 12 mg/dL (7-20); CALCIUM 9.4 mg/dL (8.4-10.2); CARBON DIOXIDE 23 mmol/L (22-30); CHLORIDE 99 mmol/L (98-107); CREATINE KINASE 51 U/L (30-135); CREATININE RESULT 0.57 mg/dL (0.52-1.25); GLUCOSE 152 mg/dL (75-110); MAGNESIUM 1.6 mg/dL (1.6-2.3); POTASSIUM 4.6 mmol/L (3.6-5.0); SODIUM 137.7 mmol/L (137-145)
[2016-11-30 01:36] LABS: CREATINE KINASE MB 0.29 ng/mL (<4.55)
[2016-11-30 01:38] LABS: TROPONIN I < 0.012 ng/mL
[2016-11-30 01:40] LABS: BASOPHILS % (MANUAL) 0 % (0-2); EOSINOPHILS % (MANUAL) 0 % (0-6); LYMPHOCYTES % (MANUAL) 11 % (13-45); RBC MORPHOLOGY COMMENT NORMO-CYTIC/CHROMIC; TOTAL CELLS COUNTED 100
[2016-11-30 01:42] LABS: WHITE BLOOD COUNT 31.1 10^3/uL (4.0-10.5)
[2016-11-30] MEDS ORDERED: PIPERACILLIN/TAZOBACTAM 4.5 GM VIAL IV ONE (01:58)
[2016-11-30] MEDS ORDERED: PIPERACILLIN SODIUM/TAZOBACTAM 4.5 GM in NORMAL SALINE 100 ML IV SCH (02:00)
[2016-11-30] MEDS: NORMAL SALINE 1000 ML 1,000 ML IV PRN ×2 (02:26→20:25)
[2016-11-30] MEDS ORDERED: NORMAL SALINE IV ONE (03:00)
[2016-11-30] MEDS ORDERED: GENTAMICIN SULFATE IV ONE (03:00)
[2016-11-30] MEDS ORDERED: VANCOMYCIN HCL INJ 1000 MG VIAL ONE (03:12)
[2016-11-30] MEDS ORDERED: GENTAMICIN SULFATE INJ 80 MG/2 ML VIAL ONE (03:13)
[2016-11-30] MEDS ORDERED: VANCOMYCIN HCL 2,000 MG in NORMAL SALINE 500 ML IV ONE (04:00)
[2016-11-30] MEDS: METHYLPREDNISOLONE INJ 125 MG/2 ML SDV IV SCH ×3 (05:13→21:52)
[2016-11-30] MEDS: HEPARIN SOD (PORCINE) 5,000 UNIT/ML 1 ML SYRINGE SUBCUT SCH ×3 (05:15→21:52)
[2016-11-30 05:55] LABS: ARTERIAL BLOOD BASE EXCESS 5.6 mmol/L; ARTERIAL BLOOD O2 SATURATION 95.6 % (94-98)
[2016-11-30] MEDS: IPRATROPIUM/ALBUTEROL 0.5-2.5 MG/3 ML AMPUL NEB SCH ×3 (08:35→20:09)
--- NOTE | 2016-11-30 08:36 | EKG REPORT ---
SEVERITY:- NORMAL ECG - SINUS RHYTHM : Confirmed by: Santiago Humphries MD 30-Nov-2016 08:35:01
[2016-11-30] MEDS: HYDROCHLOROTHIAZIDE 12.5 MG CAPSULE PO SCH (08:41)
[2016-11-30] MEDS: LISINOPRIL 10 MG TABLET PO SCH (08:41)
--- NOTE | 2016-11-30 09:46 | PDOC PROGRESS REPORT ---
Subjective Progress Note for:: 11/30/16 Subjective:: Patient reportedly developed respiratory distress last night. Patient is on BiPAP. Patient transferred to the intensive care unit. Chest x-ray revealed increasing bilateral infiltrates. WBC increased as well. No reported fever. Antibiotics escalated with addition of vancomycin , and gentamicin and Zosyn . Patient when evaluated this morning feels a lot better. Patient reports a lot of anxiety last night due to breathing difficulty. Denies diarrhea. Physical Exam Vital Signs: Temp Pulse Resp BP Pulse Ox 98.6 F 81 28 H 136/82 H 98 11/30/16 08:27 11/30/16 08:27 11/30/16 08:27 11/30/16 08:27 11/30/16 08:27 Intake & Output 11/29/16 11/30/16 12/01/16 06:59 06:59 06:59 Intake Total 1690 900 Output Total 650 350 Balance 1690 250 -350 Weight 115 kg 108.4 kg General appearance: PRESENT: no acute distress, cooperative, obese, other - BiPAP Head exam: PRESENT: normocephalic Eye exam: PRESENT: EOMI Mouth exam: PRESENT: moist, neck supple Neck exam: ABSENT: JVD Respiratory exam: PRESENT: clear to auscultation leni, rhonchi - Posteriorly bilateral Cardiovascular exam: PRESENT: RRR. ABSENT: gallop GI/Abdominal exam: PRESENT: hyperactive bowel sounds, soft. ABSENT: distended, tenderness Extremities exam: PRESENT: other - Trace lower extremity edema Neurological exam: PRESENT: alert, awake, oriented to situation Skin exam: PRESENT: dry, warm. ABSENT: cyanosis Results Laboratory Results: 11/30/16 01:00 11/30/16 01:00 11/30/16 11/30/16 11/30/16 00:10 01:00 01:00 WBC 31.1 H* RBC 4.45 Hgb 13.5 Hct 38.9 MCV 87 MCH 30.2 MCHC 34.6 RDW 13.0 Plt Count 328 Seg Neutrophils % Not Reportable Lymphocytes % Not Reportable Monocytes % Not Reportable Eosinophils % Not Reportable Basophils % Not Reportable Absolute Neutrophils Not Reportable Absolute Lymphocytes Not Reportable Absolute Monocytes Not Reportable Absolute Eosinophils Not Reportable Absolute Basophils Not Reportable Carbonic Acid 1.85 H HCO3/H2CO3 Ratio 12:1 ABG pH 7.19 L* ABG pCO2 61.5 H ABG pO2 74.7 L ABG HCO3 23.0 ABG O2 Saturation 91.2 L ABG Base Excess -6.3 FiO2 100% Sodium 137.7 Potassium 4.6 Chloride 99 Carbon Dioxide 23 Anion Gap 16 BUN 12 Creatinine 0.57 Est GFR ( Amer) > 60 Est GFR (Non-Af Amer) > 60 Glucose 152 H Calcium 9.4 Magnesium 1.6 TSH 11/30/16 11/30/16 01:00 05:38 WBC RBC Hgb Hct MCV MCH MCHC RDW Plt Count Seg Neutrophils % Lymphocytes % Monocytes % Eosinophils % Basophils % Absolute Neutrophils Absolute Lymphocytes Absolute Monocytes Absolute Eosinophils Absolute Basophils Carbonic Acid 1.49 H HCO3/H2CO3 Ratio 20:1 ABG pH 7.42 ABG pCO2 49.6 H ABG pO2 78.5 L ABG HCO3 31.2 H ABG O2 Saturation 95.6 ABG Base Excess 5.6 FiO2 60% Sodium Potassium Chloride Carbon Dioxide Anion Gap BUN Creatinine Est GFR ( Amer) Est GFR (Non-Af Amer) Glucose Calcium Magnesium TSH 1.81 11/28/16 17:14 Sputum Gram Stain - Final 11/28/16 17:14 Sputum Sputum Culture - Final C.albicans/C.dubliniensis Normal Aicha Absent 11/30/16 11/30/16 01:00 01:00 Creatine Kinase 51 CK-MB (CK-2) 0.29 Troponin I < 0.012 Impressions: Chest/Abdomen CTA 11/28/16 00:48 IMPRESSION: 1. NORMAL CTA OF THE CHEST. NO PULMONARY EMBOLI. 2. FAIRLY EXTENSIVE BILATERAL PATCHY INFILTRATES, MOST CONSISTENT WITH MULTIFOCAL PNEUMONIA. Chest X-Ray 11/30/16 00:00 IMPRESSION: WORSENING DIFFUSE BILATERAL INFILTRATES. Assessment & Plan - Diagnosis (1) Pneumonia Qualifiers: Pneumonia type: due to unspecified organism Laterality: bilateral Lung location: unspecified part of lung Qualified Code(s): J18.9 - Pneumonia , unspecified organism Is this a current diagnosis for this admission?: Yes (2) COPD exacerbation Is this a current diagnosis for this admission?: Yes (3) Diabetes 1.5, managed as type 2 Is this a current diagnosis for this admission?: Yes (4) Seizure Is this a current diagnosis for this admission?: Yes (5) Diabetic gastroparesis Is this a current diagnosis for this admission?: Yes (6) Obesity Qualifiers: Obesity type: unspecified obesity type Obesity severity: unspecified obesity severity Qualified Code(s): E66.9 - Obesity, unspecified Is this a current diagnosis for this admission?: Yes (7) Hypertension Qualifiers: Hypertension type: essential hypertension Qualified Code(s): I10 - Essential (primary) hypertension Is this a current diagnosis for this admission?: Yes (8) Hyperlipidemia Qualifiers: Hyperlipidemia type: unspecified Qualified Code(s): E78.5 - Hyperlipidemia, unspecified Is this a current diagnosis for this admission?: Yes (9) ADHD (attention deficit hyperactivity disorder) Qualifiers: Attention deficit-hyperactivity disorder type: unspecified Qualified Code(s): F90.9 - Attention-deficit hyperactivity disorder, unspecified type Is this a current diagnosis for this admission?: Yes (10) Hypothyroidism Qualifiers: Hypothyroidism type: acquired Qualified Code(s): E03.9 - Hypothyroidism, unspecified Is this a current diagnosis for this admission?: Yes (11) Fibromyalgia Is this a current diagnosis for this admission?: Yes (12) Migraine headache Qualifiers: Migraine type: unspecified Status migrainosus presence: without status migrainosus Intractability: not intractable Qualified Code(s): G43.909 - Migraine, unspecified, not intractable, without status migrainosus Is this a current diagnosis for this admission?: Yes (13) Obstructive sleep apnea Is this a current diagnosis for this admission?: Yes - Time Time Spent with patient: 25-34 minutes - Plan Summary Plan Summary: We are going to continue current antibiotics. Continue BiPAP, steroids, nebulizers. We will give intravenous diuretics, and obtain an echocardiogram. Follow cultures. Continue supportive care. Monitor WBC and creatinine.
[2016-11-30] MEDS ORDERED: METHYLPHENIDATE HCL 10 MG PO SCH ×3 (10:00)
[2016-11-30] MEDS ORDERED: AZITHROMYCIN 500 MG in DEXTROSE 5%-WATER 250 ML IV SCH ×2 (10:00→22:00)
--- NOTE | 2016-11-30 10:09 | Progress Note ---
Provider Note Provider Note: 11/30/2016: In the vending machine repairer hours, rapid response was called due to respiratory distress, with patient noted to be quite tachypneic, with increased work of breathing.. I went to the patient's bedside moments later. floor nurses along with ICU nurse present. BiPAP mask had been applied. Patient was tachypneic in the upper 20/low 30 range. Acceptable blood pressure and saturations however, although requiring rather high inspired oxygen concentration. Portable chest x-ray was obtained. I reviewed the films myself on the portable machine. There appeared to be obvious worsening of her previously diagnosed pneumonia. Given the overall clinical picture of the patient, with obvious worsening of her condition, decision was made to transfer the patient to the intensive care unit. This was accomplished shortly thereafter. Patient agreed with plans. 30 minutes of critical care time spent in evaluation and management of patient, including direct bedside evaluation, multiple discussions with nursing staff, x- ray image and report review, and entering of multiple orders into the electronic health record.
[2016-11-30] MEDS ORDERED: METHYLPHENIDATE 10 MG PO ONE (11:00)
[2016-11-30] MEDS: OPANA 10 MG PO SCH ×2 (11:13→23:00)
[2016-11-30] MEDS: DULOXETINE HCL 30 MG CAPSULE.DR PO SCH (11:14)
[2016-11-30] MEDS: LORATADINE 10 MG TABLET PO SCH (11:14)
[2016-11-30] MEDS: GUAIFENESIN 600 MG TABLET.SA PO SCH ×2 (11:15→21:52)
[2016-11-30] MEDS: LEVOTHYROXINE SODIUM 0.025 MG TABLET PO SCH (11:15)
[2016-11-30] MEDS: PREGABALIN 100 MG CAPSULE PO SCH ×2 (11:15→21:51)
[2016-11-30] MEDS: FLUTICASONE NASAL SPRAY 50 MCG/SPRY 120 SPRAY/16 GM NASL SCH (11:16)
[2016-11-30] MEDS: METFORMIN HCL 500 MG TABLET PO SCH ×2 (11:16→18:29)
[2016-11-30] MEDS: PIPERACILLIN SODIUM/TAZOBACTAM 4.5 GM in NORMAL SALINE 100 ML IV SCH ×2 (11:35→18:30)
[2016-11-30] MEDS ORDERED: FUROSEMIDE INJ/PF 40 MG/4 ML SDV IV ONE (12:00)
--- NOTE | 2016-11-30 13:47 | XCELERA REPORT ---
[address] [address] Transthoracic Echocardiogram Report Name: REINALDO CLARK Age: 46 yrs Gender: Female : 1970 Patient Status: Inpatient Patient Location: ICU\S\[id number]\S\A Study Date: 11/30/2016 11:43 AM Height: 64 in Weight: 238 lb BSA: 2.1 m2 Procedure: A complete two-dimensional transthoracic echocardiogram was performed (2D, M-mode, spectral and color flow Doppler). The study was technically difficult with many images being suboptimal in quality. Reason For Study: Pulmonary vascular congestion Ordering Physician: RICCI HAYES Performed By: Kay Mccollum Interpretation Summary The left ventricular ejection fraction is normal. There is mild concentric left ventricular hypertrophy. The left ventricle is grossly normal size. Doppler measurements suggest pseudonormalized left ventricular relaxation, which is associated with grade II/IV or mild to moderate diastolic dysfunction Wall motion cannot be accurately commented on, but no definite regional wall motion abnormalities noted. The right ventricular systolic function is normal. The left atrial size is normal. The right atrium is normal in size There is a trace to mild amount of mitral regurgitation There is no mitral valve stenosis. There is no aortic valve stenosis No aortic regurgitation is present. There is a trace or physiologic amount of tricuspid regurgitation Tricuspid regurgitation jet envelope not well defined to measure RV systolic pressure accurately. The aortic root is not well visualized but is probably normal size. The inferior vena cava appeared normal and decreased < 50% with respiration (RAP 10-15 mmHg) There is no pericardial effusion. MMode/2D Measurements \T\ Calculations RVDd: 2.4 cm LVIDd: 4.4 cm FS: 42.0 % Ao root diam: 2.9 cm IVSd: 1.1 cm LVIDs: 2.6 cm EDV(Teich): 88.2 ml LVPWd: 0.99 cm ESV(Teich): 23.7 ml Ao root area: 6.7 cm2 EF(Teich): 73.2 % LA dimension: 2.8 cm Doppler Measurements \T\ Calculations MV E max cristiana: MV P1/2t max cristiana: Ao V2 max: LV V1 max P.4 cm/sec 88.8 cm/sec 149.4 cm/sec 5.5 mmHg MV A max cristiana: MV P1/2t: 57.7 msec Ao max PG: LV V1 max: 78.5 cm/sec 8.9 mmHg 117.5 cm/sec MV E/A: 1.1 MVA(P1/2t): 3.8 cm2 MV dec slope: 451.1 cm/sec2 MV dec time: 0.19 sec PA V2 max: TR max cristiana: 88.4 cm/sec 253.7 cm/sec PA max PG: TR max P.7 mmHg 3.1 mmHg Left Ventricle The left ventricle is grossly normal size. There is mild concentric left ventricular hypertrophy. The left ventricular ejection fraction is normal. Doppler measurements suggest pseudonormalized left ventricular relaxation, which is associated with grade II/IV or mild to moderate diastolic dysfunction. Wall motion cannot be accurately commented on, but no definite regional wall motion abnormalities noted. Right Ventricle The right ventricle is grossly normal size. There is normal right ventricular wall thickness. The right ventricular systolic function is normal. Atria The right atrium is normal in size. The left atrial size is normal. Interarterial septum not well visualized and not well dopplered. Cannot comment on ASD/PFO presence. Mitral Valve The mitral valve is grossly normal. There is no mitral valve stenosis. There is a trace to mild amount of mitral regurgitation. Aortic Valve The aortic valve is grossly normal. There is no aortic valve stenosis. No aortic regurgitation is present. Tricuspid Valve The tricuspid valve is not well visualized, but is grossly normal. There is no tricuspid stenosis. There is a trace or physiologic amount of tricuspid regurgitation. Tricuspid regurgitation jet envelope not well defined to measure RV systolic pressure accurately. Pulmonic Valve The pulmonic valve is not well visualized. Great Vessels The aortic root is not well visualized but is probably normal size. The inferior vena cava appeared normal and decreased < 50% with respiration (RAP 10-15 mmHg). Effusions There is no pericardial effusion. : RICCI HAYES > Francisco Sanchez
[2016-11-30 13:53] LABS: PATH REVIEW PATHOLOGIST REVIEWED
[2016-11-30] MEDS: VANCOMYCIN HCL 1,250 MG in DEXTROSE 5%-WATER 250 ML IV SCH ×2 (16:28→21:53)
[2016-11-30] MEDS: VERAPAMIL HCL 240 MG TABLET.SA PO SCH (18:30)
[2016-11-30] MEDS: OXYCODONE HCL IR 5 MG TABLET PO PRN (20:04)
[2016-11-30] MEDS: TOBRAMYCIN SULFATE NEB 40 MG/ML 30 ML NEB SCH (20:08)
[2016-11-30] MEDS: ATORVASTATIN CALCIUM 10 MG TABLET PO SCH (21:52)
[2016-12-01] MEDS: FLUTICASONE NASAL SPRAY 50 MCG/SPRY 120 SPRAY/16 GM NASL SCH ×3 (00:44→21:12)
[2016-12-01] MEDS: INSULIN LISPRO 100 UNIT/ML 3 ML VIAL SUBCUT PRN ×3 (00:44→18:42)
[2016-12-01] MEDS: PIPERACILLIN SODIUM/TAZOBACTAM 4.5 GM in NORMAL SALINE 100 ML IV SCH ×4 (00:45→18:11)
[2016-12-01] MEDS: OXYCODONE HCL IR 5 MG TABLET PO PRN ×3 (03:17→19:31)
[2016-12-01] MEDS: ALBUTEROL SULFATE 0.083% NEB 2.5 MG/3 ML AMPUL NEB PRN ×2 (04:23→18:15)
[2016-12-01] MEDS: HEPARIN SOD (PORCINE) 5,000 UNIT/ML 1 ML SYRINGE SUBCUT SCH ×3 (05:19→21:14)
[2016-12-01] MEDS: METHYLPREDNISOLONE INJ 125 MG/2 ML SDV IV SCH ×3 (05:19→21:13)
[2016-12-01] MEDS: VANCOMYCIN HCL 1,250 MG in DEXTROSE 5%-WATER 250 ML IV SCH (06:41)
[2016-12-01 06:58] LABS: ANION GAP 14 (5-19); BLOOD UREA NITROGEN 14 mg/dL (7-20); CALCIUM 8.7 mg/dL (8.4-10.2); CARBON DIOXIDE 26 mmol/L (22-30); CHLORIDE 102 mmol/L (98-107); CREATININE RESULT 0.49 mg/dL (0.52-1.25); GLUCOSE 198 mg/dL (75-110); POTASSIUM 3.4 mmol/L (3.6-5.0); SODIUM 141.5 mmol/L (137-145)
[2016-12-01] MEDS: LEVOTHYROXINE SODIUM 0.025 MG TABLET PO SCH (08:05)
[2016-12-01] MEDS: HYDROCHLOROTHIAZIDE 12.5 MG CAPSULE PO SCH (08:06)
[2016-12-01] MEDS: IPRATROPIUM/ALBUTEROL 0.5-2.5 MG/3 ML AMPUL NEB SCH ×3 (08:36→20:16)
[2016-12-01] MEDS: TOBRAMYCIN SULFATE NEB 40 MG/ML 30 ML NEB SCH (08:36)
[2016-12-01] MEDS ORDERED: LORAZEPAM INJ 2 MG/1 ML VIAL ONE (09:03)
[2016-12-01 09:23] LABS: ABSOLUTE LYMPHOCYTES (AUTO) 1.5 10^3/uL (0.5-4.7); ABSOLUTE MONOCYTES (AUTO) 0.8 10^3/uL (0.1-1.4); ABSOLUTE NEUT (AUTO) 13.3 10^3/uL (1.7-8.2); BASOPHILS % (AUTO) 0.2 % (0-2); HEMOGLOBIN 12.4 g/dL (12.0-15.5); HGB HCT DIFFERENCE 1.2; LYMPHOCYTES % (AUTO) 9.8 % (13-45); MEAN CORPUSCULAR HEMOGLOBIN 30.2 pg (27.0-33.4); MEAN CORPUSCULAR HGB CONC 34.5 g/dL (32.0-36.0); MEAN CORPUSCULAR VOLUME 88 fl (80-97); WHITE BLOOD COUNT 15.7 10^3/uL (4.0-10.5)
[2016-12-01] MEDS ORDERED: FUROSEMIDE INJ/PF 40 MG/4 ML SDV IV SCH (10:00)
--- NOTE | 2016-12-01 10:21 | PDOC PROGRESS REPORT ---
Subjective Progress Note for:: 12/01/16 Subjective:: Patient had another episode of respiratory discomfort earlier, given Ativan and has improved. O2 sats however were greater than 90%. There was no temperature spikes. No nausea or vomiting. No diarrhea. Family at bedside, patient had significant problem with panic disorder. She is on multiple medications and being followed reportedly by a specialist outpatient. Physical Exam Vital Signs: Temp Pulse Resp BP Pulse Ox 98.4 F 92 18 128/69 H 99 12/01/16 07:21 12/01/16 07:21 12/01/16 07:21 12/01/16 07:21 12/01/16 07:21 Intake & Output 11/30/16 12/01/16 12/02/16 06:59 06:59 06:59 Intake Total 900 1711 Output Total 650 3207 Balance 250 -1496 Weight 108.4 kg 108.5 kg General appearance: PRESENT: no acute distress, cooperative, obese Head exam: PRESENT: normocephalic Eye exam: PRESENT: EOMI Mouth exam: PRESENT: moist, neck supple Neck exam: ABSENT: JVD Respiratory exam: PRESENT: decreased breath sounds - Lower lung cruz, rhonchi - Occasional. ABSENT: wheezes Cardiovascular exam: PRESENT: RRR. ABSENT: gallop GI/Abdominal exam: PRESENT: soft. ABSENT: distended, tenderness Extremities exam: PRESENT: other - Trace lower extremity edema Neurological exam: PRESENT: alert, awake, oriented to situation Skin exam: PRESENT: dry, warm. ABSENT: cyanosis Results Laboratory Results: 12/01/16 06:23 12/01/16 06:23 11/30/16 12/01/16 12/01/16 01:00 06:23 06:23 WBC 31.1 H* 15.7 H RBC 4.45 4.10 Hgb 13.5 12.4 Hct 38.9 36.0 MCV 87 88 MCH 30.2 30.2 MCHC 34.6 34.5 RDW 13.0 13.0 Plt Count 328 400 Seg Neutrophils % 85.0 H Lymphocytes % 9.8 L Monocytes % 5.0 Eosinophils % 0.0 Basophils % 0.2 Absolute Neutrophils 13.3 H Absolute Lymphocytes 1.5 Absolute Monocytes 0.8 Absolute Eosinophils 0.0 Absolute Basophils 0.0 Sodium 141.5 Potassium 3.4 L Chloride 102 Carbon Dioxide 26 Anion Gap 14 BUN 14 Creatinine 0.49 L Est GFR ( Amer) > 60 Est GFR (Non-Af Amer) > 60 Glucose 198 H Calcium 8.7 11/28/16 17:14 Sputum Gram Stain - Final 11/28/16 17:14 Sputum Sputum Culture - Final C.albicans/C.dubliniensis Normal Aicha Absent 11/30/16 11/30/16 01:00 01:00 Creatine Kinase 51 CK-MB (CK-2) 0.29 Troponin I < 0.012 Impressions: Chest/Abdomen CTA 11/28/16 00:48 IMPRESSION: 1. NORMAL CTA OF THE CHEST. NO PULMONARY EMBOLI. 2. FAIRLY EXTENSIVE BILATERAL PATCHY INFILTRATES, MOST CONSISTENT WITH MULTIFOCAL PNEUMONIA. Chest X-Ray 12/01/16 00:00 IMPRESSION: Mild diffuse bilateral airspace disease worrisome for pulmonary edema Assessment & Plan - Diagnosis (1) Pneumonia Qualifiers: Pneumonia type: due to unspecified organism Laterality: bilateral Lung location: unspecified part of lung Qualified Code(s): J18.9 - Pneumonia , unspecified organism Is this a current diagnosis for this admission?: Yes (2) COPD exacerbation Is this a current diagnosis for this admission?: Yes (3) Diabetes 1.5, managed as type 2 Is this a current diagnosis for this admission?: Yes (4) Seizure Is this a current diagnosis for this admission?: Yes (5) Diabetic gastroparesis Is this a current diagnosis for this admission?: Yes (6) Obesity Qualifiers: Obesity type: unspecified obesity type Obesity severity: unspecified obesity severity Qualified Code(s): E66.9 - Obesity, unspecified Is this a current diagnosis for this admission?: Yes (7) Hypertension Qualifiers: Hypertension type: essential hypertension Qualified Code(s): I10 - Essential (primary) hypertension Is this a current diagnosis for this admission?: Yes (8) Hyperlipidemia Qualifiers: Hyperlipidemia type: unspecified Qualified Code(s): E78.5 - Hyperlipidemia, unspecified Is this a current diagnosis for this admission?: Yes (9) ADHD (attention deficit hyperactivity disorder) Qualifiers: Attention deficit-hyperactivity disorder type: unspecified Qualified Code(s): F90.9 - Attention-deficit hyperactivity disorder, unspecified type Is this a current diagnosis for this admission?: Yes (10) Hypothyroidism Qualifiers: Hypothyroidism type: acquired Qualified Code(s): E03.9 - Hypothyroidism, unspecified Is this a current diagnosis for this admission?: Yes (11) Fibromyalgia Is this a current diagnosis for this admission?: Yes (12) Migraine headache Qualifiers: Migraine type: unspecified Status migrainosus presence: without status migrainosus Intractability: not intractable Qualified Code(s): G43.909 - Migraine, unspecified, not intractable, without status migrainosus Is this a current diagnosis for this admission?: Yes (13) Obstructive sleep apnea Is this a current diagnosis for this admission?: Yes - Time Time Spent with patient: 25-34 minutes - Plan Summary Plan Summary: We are going to increase the Lasix. Obtain an echocardiogram. Meantime we will discontinue vancomycin and tobramycin and Zosyn. Her cultures remained negative so far other than yeast. WBC significantly improved, she is on steroids, initial increase probably leukemoid. Continue supportive care.
[2016-12-01] MEDS ORDERED: FUROSEMIDE INJ/PF 40 MG/4 ML SDV IV ONE (11:30)
[2016-12-01] MEDS: DULOXETINE HCL 30 MG CAPSULE.DR PO SCH (12:04)
[2016-12-01] MEDS: PREGABALIN 100 MG CAPSULE PO SCH ×2 (12:04→21:13)
[2016-12-01] MEDS: LORATADINE 10 MG TABLET PO SCH (12:05)
[2016-12-01] MEDS: GUAIFENESIN 600 MG TABLET.SA PO SCH ×2 (12:05→21:13)
[2016-12-01] MEDS: NICOTINE 14 MG/24 HR PATCH.TD24 TD SCH (12:06)
[2016-12-01] MEDS: OPANA 10 MG PO SCH ×2 (12:07→21:10)
[2016-12-01] MEDS: METHYLPHENIDATE 10 MG PO SCH (12:07)
[2016-12-01] MEDS: LORAZEPAM INJ 2 MG/1 ML VIAL IV PRN (14:55)
[2016-12-01] MEDS: VERAPAMIL HCL 240 MG TABLET.SA PO SCH (18:10)
[2016-12-01] MEDS: NORMAL SALINE 1000 ML 1,000 ML IV PRN (18:12)
[2016-12-01] MEDS: ATORVASTATIN CALCIUM 10 MG TABLET PO SCH (21:12)
[2016-12-01] MEDS: FUROSEMIDE INJ/PF 40 MG/4 ML SDV IV SCH (21:16)
[2016-12-01] MEDS ORDERED: NORMAL SALINE 1000 ML 1,000 ML IV PRN (22:20)
[2016-12-02] MEDS: ALBUTEROL SULFATE 0.083% NEB 2.5 MG/3 ML AMPUL NEB PRN (00:38)
[2016-12-02] MEDS: LORAZEPAM INJ 2 MG/1 ML VIAL IV PRN ×4 (00:43→23:28)
[2016-12-02] MEDS: PIPERACILLIN SODIUM/TAZOBACTAM 4.5 GM in NORMAL SALINE 100 ML IV SCH ×5 (00:51→23:28)
[2016-12-02] MEDS: METHYLPREDNISOLONE INJ 125 MG/2 ML SDV IV SCH ×3 (05:43→22:01)
[2016-12-02] MEDS: HEPARIN SOD (PORCINE) 5,000 UNIT/ML 1 ML SYRINGE SUBCUT SCH ×3 (05:44→22:02)
[2016-12-02] MEDS: INSULIN LISPRO 100 UNIT/ML 3 ML VIAL SUBCUT PRN ×3 (06:06→22:02)
[2016-12-02] MEDS: LEVOTHYROXINE SODIUM 0.025 MG TABLET PO SCH (08:08)
[2016-12-02] MEDS: HYDROCHLOROTHIAZIDE 12.5 MG CAPSULE PO SCH (08:08)
[2016-12-02] MEDS: METHYLPHENIDATE 10 MG PO SCH (08:11)
[2016-12-02] MEDS: OXYCODONE HCL IR 5 MG TABLET PO PRN ×2 (08:12→14:19)
[2016-12-02] MEDS: IPRATROPIUM/ALBUTEROL 0.5-2.5 MG/3 ML AMPUL NEB SCH ×3 (08:49→20:13)
[2016-12-02] MEDS: NICOTINE 14 MG/24 HR PATCH.TD24 TD SCH (11:20)
[2016-12-02] MEDS: LORATADINE 10 MG TABLET PO SCH (11:21)
[2016-12-02] MEDS: PREGABALIN 100 MG CAPSULE PO SCH ×2 (11:22→22:02)
[2016-12-02] MEDS: DULOXETINE HCL 30 MG CAPSULE.DR PO SCH (11:22)
[2016-12-02] MEDS: GUAIFENESIN 600 MG TABLET.SA PO SCH ×2 (11:23→22:00)
[2016-12-02] MEDS: FUROSEMIDE INJ/PF 40 MG/4 ML SDV IV SCH ×2 (11:25→22:02)
[2016-12-02] MEDS: OPANA 10 MG PO SCH ×2 (11:29→22:10)
[2016-12-02] MEDS: FLUTICASONE NASAL SPRAY 50 MCG/SPRY 120 SPRAY/16 GM NASL SCH ×2 (11:33→22:00)
--- NOTE | 2016-12-02 11:38 | PDOC PROGRESS REPORT ---
Subjective Progress Note for:: 12/02/16 Subjective:: Feeling better this morning, still have bouts of anxiety reported shortness of breath. No chills or fever. No diarrhea, nausea vomiting, chest pain. Patient is off the BiPAP and is on nasal cannula oxygen. Physical Exam Vital Signs: Temp Pulse Resp BP Pulse Ox 98.0 F 97 20 147/83 H 93 12/02/16 11:14 12/02/16 11:14 12/02/16 08:49 12/02/16 11:14 12/02/16 11:14 Intake & Output 12/01/16 12/02/16 12/03/16 06:59 06:59 06:59 Intake Total 1711 2870 Output Total 3207 1300 Balance -1496 1570 Weight 108.5 kg 107.7 kg 107.7 kg General appearance: PRESENT: no acute distress, cooperative, morbidly obese Head exam: PRESENT: normocephalic Eye exam: PRESENT: EOMI Mouth exam: PRESENT: moist, neck supple Neck exam: ABSENT: JVD Respiratory exam: PRESENT: rhonchi - few. ABSENT: wheezes Cardiovascular exam: PRESENT: RRR. ABSENT: gallop GI/Abdominal exam: PRESENT: normal bowel sounds, soft. ABSENT: tenderness Extremities exam: PRESENT: other - Trace lower extremity edema Neurological exam: PRESENT: alert, awake, oriented to situation Skin exam: PRESENT: dry, warm. ABSENT: cyanosis Results Laboratory Results: 12/01/16 06:23 12/01/16 06:23 11/30/16 11/30/16 01:00 01:00 Creatine Kinase 51 CK-MB (CK-2) 0.29 Troponin I < 0.012 Impressions: Chest/Abdomen CTA 11/28/16 00:48 IMPRESSION: 1. NORMAL CTA OF THE CHEST. NO PULMONARY EMBOLI. 2. FAIRLY EXTENSIVE BILATERAL PATCHY INFILTRATES, MOST CONSISTENT WITH MULTIFOCAL PNEUMONIA. Chest X-Ray 12/01/16 00:00 IMPRESSION: Mild diffuse bilateral airspace disease worrisome for pulmonary edema Assessment & Plan - Diagnosis (1) Pneumonia Qualifiers: Pneumonia type: due to unspecified organism Laterality: bilateral Lung location: unspecified part of lung Qualified Code(s): J18.9 - Pneumonia , unspecified organism Is this a current diagnosis for this admission?: Yes (2) COPD exacerbation Is this a current diagnosis for this admission?: Yes (3) Diabetes 1.5, managed as type 2 Is this a current diagnosis for this admission?: Yes (4) Seizure Is this a current diagnosis for this admission?: Yes (5) Diabetic gastroparesis Is this a current diagnosis for this admission?: Yes (6) Obesity Qualifiers: Obesity type: unspecified obesity type Obesity severity: unspecified obesity severity Qualified Code(s): E66.9 - Obesity, unspecified Is this a current diagnosis for this admission?: Yes (7) Hypertension Qualifiers: Hypertension type: essential hypertension Qualified Code(s): I10 - Essential (primary) hypertension Is this a current diagnosis for this admission?: Yes (8) Hyperlipidemia Qualifiers: Hyperlipidemia type: unspecified Qualified Code(s): E78.5 - Hyperlipidemia, unspecified Is this a current diagnosis for this admission?: Yes (9) ADHD (attention deficit hyperactivity disorder) Qualifiers: Attention deficit-hyperactivity disorder type: unspecified Qualified Code(s): F90.9 - Attention-deficit hyperactivity disorder, unspecified type Is this a current diagnosis for this admission?: Yes (10) Hypothyroidism Qualifiers: Hypothyroidism type: acquired Qualified Code(s): E03.9 - Hypothyroidism, unspecified Is this a current diagnosis for this admission?: Yes (11) Fibromyalgia Is this a current diagnosis for this admission?: Yes (12) Migraine headache Qualifiers: Migraine type: unspecified Status migrainosus presence: without status migrainosus Intractability: not intractable Qualified Code(s): G43.909 - Migraine, unspecified, not intractable, without status migrainosus Is this a current diagnosis for this admission?: Yes (13) Obstructive sleep apnea Is this a current diagnosis for this admission?: Yes - Time Time Spent with patient: 25-34 minutes - Plan Summary Plan Summary: We will begin diet. Patient will continue the diuretics with Lasix, discontinue hydrochlorothiazide. Decrease intravenous fluids. Continue to wean oxygen. Continue current antibiotics for now and follow cultures. Recheck electrolytes and WBC.
[2016-12-02] MEDS: POTASSIUM CHLORIDE 10 MEQ TABLET.SA PO SCH ×2 (17:07→22:01)
[2016-12-02] MEDS: VERAPAMIL HCL 240 MG TABLET.SA PO SCH (17:08)
[2016-12-02] MEDS: ATORVASTATIN CALCIUM 10 MG TABLET PO SCH (22:02)
[2016-12-03] MEDS: ALBUTEROL SULFATE 0.083% NEB 2.5 MG/3 ML AMPUL NEB PRN (02:24)
[2016-12-03] MEDS: METHYLPREDNISOLONE INJ 125 MG/2 ML SDV IV SCH (05:24)
[2016-12-03] MEDS: LORAZEPAM INJ 2 MG/1 ML VIAL IV PRN ×3 (05:25→21:27)
[2016-12-03] MEDS: PIPERACILLIN SODIUM/TAZOBACTAM 4.5 GM in NORMAL SALINE 100 ML IV SCH ×4 (05:30→23:33)
[2016-12-03] MEDS: HEPARIN SOD (PORCINE) 5,000 UNIT/ML 1 ML SYRINGE SUBCUT SCH ×3 (05:31→21:27)
[2016-12-03 06:34] LABS: HEMATOCRIT 37.4 % (36.0-47.0); HEMOGLOBIN 13.2 g/dL (12.0-15.5); HGB HCT DIFFERENCE 2.2; MEAN CORPUSCULAR HEMOGLOBIN 30.4 pg (27.0-33.4); MEAN CORPUSCULAR HGB CONC 35.3 g/dL (32.0-36.0); MEAN CORPUSCULAR VOLUME 86 fl (80-97); RED BLOOD COUNT 4.35 10^6/uL (3.72-5.28); WHITE BLOOD COUNT 12.5 10^3/uL (4.0-10.5)
[2016-12-03 06:50] LABS: ANION GAP 16 (5-19); BLOOD UREA NITROGEN 28 mg/dL (7-20); CALCIUM 9.5 mg/dL (8.4-10.2); CARBON DIOXIDE 32 mmol/L (22-30); CHLORIDE 93 mmol/L (98-107); CREATININE RESULT 0.78 mg/dL (0.52-1.25); GLUCOSE 307 mg/dL (75-110); POTASSIUM 3.6 mmol/L (3.6-5.0); SODIUM 140.8 mmol/L (137-145)
[2016-12-03 07:28] LABS: BASOPHILS % (MANUAL) 0 % (0-2); EOSINOPHILS % (MANUAL) 0 % (0-6); LYMPHOCYTES % (MANUAL) 14 % (13-45); TOTAL CELLS COUNTED 100
[2016-12-03 07:29] LABS: RBC MORPHOLOGY COMMENT NORMO-CYTIC/CHROMIC
[2016-12-03] MEDS: IPRATROPIUM/ALBUTEROL 0.5-2.5 MG/3 ML AMPUL NEB SCH ×3 (08:52→19:57)
[2016-12-03] MEDS: PREGABALIN 100 MG CAPSULE PO SCH ×2 (11:15→21:26)
[2016-12-03] MEDS: GUAIFENESIN 600 MG TABLET.SA PO SCH ×2 (11:16→21:26)
[2016-12-03] MEDS: LEVOTHYROXINE SODIUM 0.025 MG TABLET PO SCH (11:17)
[2016-12-03] MEDS: LORATADINE 10 MG TABLET PO SCH (11:18)
[2016-12-03] MEDS: DULOXETINE HCL 30 MG CAPSULE.DR PO SCH (11:18)
[2016-12-03] MEDS: FUROSEMIDE INJ/PF 40 MG/4 ML SDV IV SCH (11:19)
[2016-12-03] MEDS: NICOTINE 14 MG/24 HR PATCH.TD24 TD SCH (11:19)
[2016-12-03] MEDS: FLUTICASONE NASAL SPRAY 50 MCG/SPRY 120 SPRAY/16 GM NASL SCH ×2 (11:20→21:26)
[2016-12-03] MEDS: OPANA 10 MG PO SCH ×2 (11:20→21:27)
[2016-12-03] MEDS: METHYLPHENIDATE 10 MG PO SCH (11:20)
[2016-12-03] MEDS: INSULIN LISPRO 100 UNIT/ML 3 ML VIAL SUBCUT PRN ×3 (12:43→21:27)
[2016-12-03] MEDS: OXYCODONE HCL IR 5 MG TABLET PO PRN ×2 (12:45→16:52)
--- NOTE | 2016-12-03 12:46 | PDOC PROGRESS REPORT ---
Subjective Progress Note for:: 12/03/16 Subjective:: No diarrhea, nausea vomiting or abdominal pain. Tolerating oral intake. Patient on BiPAP. Tolerating nasal cannula oxygen. WBC trending down. No reported temperature spikes or respiratory distress. Patient denies any chest pain Physical Exam Vital Signs: Temp Pulse Resp BP Pulse Ox 97.9 F 98 20 121/92 H 97 12/03/16 11:43 12/03/16 11:43 12/03/16 11:43 12/03/16 11:43 12/03/16 11:43 Intake & Output 12/02/16 12/03/16 12/04/16 06:59 06:59 06:59 Intake Total 2870 3350 0 Output Total 1300 4300 Balance 1570 -950 0 Weight 107.7 kg 107.2 kg General appearance: PRESENT: no acute distress, morbidly obese Head exam: PRESENT: normocephalic Eye exam: PRESENT: EOMI Mouth exam: PRESENT: moist, neck supple Neck exam: ABSENT: JVD Respiratory exam: PRESENT: clear to auscultation leni. ABSENT: rhonchi, wheezes Cardiovascular exam: PRESENT: RRR. ABSENT: gallop GI/Abdominal exam: PRESENT: normal bowel sounds, soft. ABSENT: distended, tenderness Extremities exam: PRESENT: other - Trace lower extremity edema Neurological exam: PRESENT: alert, awake, oriented to situation Skin exam: PRESENT: dry, warm. ABSENT: cyanosis Results Laboratory Results: 12/03/16 06:07 12/03/16 06:07 12/02/16 12/03/16 12/03/16 12:11 06:07 06:07 WBC 12.5 H RBC 4.35 Hgb 13.2 Hct 37.4 MCV 86 MCH 30.4 MCHC 35.3 RDW 13.0 Plt Count 531 H Seg Neutrophils % Not Reportable Lymphocytes % Not Reportable Monocytes % Not Reportable Eosinophils % Not Reportable Basophils % Not Reportable Absolute Neutrophils Not Reportable Absolute Lymphocytes Not Reportable Absolute Monocytes Not Reportable Absolute Eosinophils Not Reportable Absolute Basophils Not Reportable Sodium 140.8 Potassium 2.9 L* 3.6 Chloride 93 L Carbon Dioxide 32 H Anion Gap 16 BUN 28 H Creatinine 0.78 Est GFR ( Amer) > 60 Est GFR (Non-Af Amer) > 60 Glucose 307 H Calcium 9.5 11/30/16 11/30/16 01:00 01:00 Creatine Kinase 51 CK-MB (CK-2) 0.29 Troponin I < 0.012 Impressions: Chest/Abdomen CTA 11/28/16 00:48 IMPRESSION: 1. NORMAL CTA OF THE CHEST. NO PULMONARY EMBOLI. 2. FAIRLY EXTENSIVE BILATERAL PATCHY INFILTRATES, MOST CONSISTENT WITH MULTIFOCAL PNEUMONIA. Chest X-Ray 12/01/16 00:00 IMPRESSION: Mild diffuse bilateral airspace disease worrisome for pulmonary edema Assessment & Plan - Diagnosis (1) Pneumonia Qualifiers: Pneumonia type: due to unspecified organism Laterality: bilateral Lung location: unspecified part of lung Qualified Code(s): J18.9 - Pneumonia , unspecified organism Is this a current diagnosis for this admission?: Yes (2) COPD exacerbation Is this a current diagnosis for this admission?: Yes (3) Diabetes 1.5, managed as type 2 Is this a current diagnosis for this admission?: Yes (4) Seizure Is this a current diagnosis for this admission?: Yes (5) Diabetic gastroparesis Is this a current diagnosis for this admission?: Yes (6) Obesity Qualifiers: Obesity type: unspecified obesity type Obesity severity: unspecified obesity severity Qualified Code(s): E66.9 - Obesity, unspecified Is this a current diagnosis for this admission?: Yes (7) Hypertension Qualifiers: Hypertension type: essential hypertension Qualified Code(s): I10 - Essential (primary) hypertension Is this a current diagnosis for this admission?: Yes (8) Hyperlipidemia Qualifiers: Hyperlipidemia type: unspecified Qualified Code(s): E78.5 - Hyperlipidemia, unspecified Is this a current diagnosis for this admission?: Yes (9) ADHD (attention deficit hyperactivity disorder) Qualifiers: Attention deficit-hyperactivity disorder type: unspecified Qualified Code(s): F90.9 - Attention-deficit hyperactivity disorder, unspecified type Is this a current diagnosis for this admission?: Yes (10) Hypothyroidism Qualifiers: Hypothyroidism type: acquired Qualified Code(s): E03.9 - Hypothyroidism, unspecified Is this a current diagnosis for this admission?: Yes (11) Fibromyalgia Is this a current diagnosis for this admission?: Yes (12) Migraine headache Qualifiers: Migraine type: unspecified Status migrainosus presence: without status migrainosus Intractability: not intractable Qualified Code(s): G43.909 - Migraine, unspecified, not intractable, without status migrainosus Is this a current diagnosis for this admission?: Yes (13) Obstructive sleep apnea Is this a current diagnosis for this admission?: Yes - Time Time Spent with patient: 25-34 minutes - Plan Summary Plan Summary: Decrease Lasix dose, discontinue IV steroids, begin prednisone. Discontinue IV fluids. Continue other medications and supportive care. Continue to wean oxygen.
[2016-12-03] MEDS: VERAPAMIL HCL 240 MG TABLET.SA PO SCH (16:52)
[2016-12-03] MEDS: ATORVASTATIN CALCIUM 10 MG TABLET PO SCH (21:27)
[2016-12-04] MEDS: ALBUTEROL SULFATE 0.083% NEB 2.5 MG/3 ML AMPUL NEB PRN ×2 (00:46→04:13)
[2016-12-04] MEDS: LORAZEPAM INJ 2 MG/1 ML VIAL IV PRN ×4 (04:05→22:22)
[2016-12-04] MEDS: OXYCODONE HCL IR 5 MG TABLET PO PRN ×4 (04:42→23:19)
[2016-12-04] MEDS: PIPERACILLIN SODIUM/TAZOBACTAM 4.5 GM in NORMAL SALINE 100 ML IV SCH ×2 (05:49→12:18)
[2016-12-04] MEDS: HEPARIN SOD (PORCINE) 5,000 UNIT/ML 1 ML SYRINGE SUBCUT SCH ×3 (05:52→22:22)
[2016-12-04] MEDS: GUAIFENESIN SYRP 200 MG/10 ML UDC PO PRN ×2 (06:45→19:43)
[2016-12-04] MEDS: ACETAMINOPHEN 325 MG TABLET PO PRN ×2 (06:45→19:42)
[2016-12-04] MEDS: IPRATROPIUM/ALBUTEROL 0.5-2.5 MG/3 ML AMPUL NEB SCH ×3 (08:35→19:46)
[2016-12-04] MEDS: METHYLPHENIDATE 10 MG PO SCH (09:09)
[2016-12-04] MEDS: OPANA 10 MG PO SCH ×2 (09:09→22:22)
[2016-12-04] MEDS: PREDNISONE 20 MG TABLET PO SCH (09:09)
[2016-12-04] MEDS: LEVOTHYROXINE SODIUM 0.025 MG TABLET PO SCH (09:09)
[2016-12-04] MEDS: DULOXETINE HCL 30 MG CAPSULE.DR PO SCH (09:10)
[2016-12-04] MEDS: GUAIFENESIN 600 MG TABLET.SA PO SCH ×2 (09:10→22:23)
[2016-12-04] MEDS: LORATADINE 10 MG TABLET PO SCH (09:11)
[2016-12-04] MEDS: PREGABALIN 100 MG CAPSULE PO SCH ×2 (09:11→22:23)
[2016-12-04] MEDS: FLUTICASONE NASAL SPRAY 50 MCG/SPRY 120 SPRAY/16 GM NASL SCH ×2 (09:12→22:24)
[2016-12-04] MEDS: NICOTINE 14 MG/24 HR PATCH.TD24 TD SCH (09:12)
[2016-12-04] MEDS: FUROSEMIDE INJ/PF 40 MG/4 ML SDV IV SCH (09:12)
[2016-12-04] MEDS: INSULIN LISPRO 100 UNIT/ML 3 ML VIAL SUBCUT PRN ×3 (13:20→22:22)
--- NOTE | 2016-12-04 13:49 | PDOC PROGRESS REPORT ---
Subjective Progress Note for:: 12/04/16 Subjective:: Patient continues to improve. Still with a lot of his anxiety however. Oxygen down to 1 L via nasal cannula. No reported temperature spikes, nausea or vomiting, chills or fever, nor diarrhea. Physical Exam Vital Signs: Temp Pulse Resp BP Pulse Ox 97.8 F 99 20 138/92 H 97 12/04/16 11:54 12/04/16 11:54 12/04/16 11:54 12/04/16 11:54 12/04/16 11:54 Intake & Output 12/03/16 12/04/16 12/05/16 06:59 06:59 06:59 Intake Total 3350 3131 922 Output Total 4300 500 700 Balance -950 2631 222 Weight 107.2 kg 106.7 kg General appearance: PRESENT: no acute distress, morbidly obese Head exam: PRESENT: normocephalic Eye exam: PRESENT: EOMI Mouth exam: PRESENT: moist, neck supple Neck exam: ABSENT: JVD Respiratory exam: ABSENT: rhonchi, wheezes Cardiovascular exam: PRESENT: RRR. ABSENT: gallop GI/Abdominal exam: PRESENT: soft. ABSENT: distended, tenderness Extremities exam: PRESENT: other - Trace lower extremity edema Neurological exam: PRESENT: alert, awake, oriented to situation Skin exam: PRESENT: dry, warm. ABSENT: cyanosis Results Laboratory Results: 12/03/16 06:07 12/03/16 06:07 11/30/16 11/30/16 01:00 01:00 Creatine Kinase 51 CK-MB (CK-2) 0.29 Troponin I < 0.012 Impressions: Chest/Abdomen CTA 11/28/16 00:48 IMPRESSION: 1. NORMAL CTA OF THE CHEST. NO PULMONARY EMBOLI. 2. FAIRLY EXTENSIVE BILATERAL PATCHY INFILTRATES, MOST CONSISTENT WITH MULTIFOCAL PNEUMONIA. Chest X-Ray 12/01/16 00:00 IMPRESSION: Mild diffuse bilateral airspace disease worrisome for pulmonary edema Assessment & Plan - Diagnosis (1) Pneumonia Qualifiers: Pneumonia type: due to unspecified organism Laterality: bilateral Lung location: unspecified part of lung Qualified Code(s): J18.9 - Pneumonia , unspecified organism Is this a current diagnosis for this admission?: Yes (2) COPD exacerbation Is this a current diagnosis for this admission?: Yes (3) Diabetes 1.5, managed as type 2 Is this a current diagnosis for this admission?: Yes (4) Seizure Is this a current diagnosis for this admission?: Yes (5) Diabetic gastroparesis Is this a current diagnosis for this admission?: Yes (6) Obesity Qualifiers: Obesity type: unspecified obesity type Obesity severity: unspecified obesity severity Qualified Code(s): E66.9 - Obesity, unspecified Is this a current diagnosis for this admission?: Yes (7) Hypertension Qualifiers: Hypertension type: essential hypertension Qualified Code(s): I10 - Essential (primary) hypertension Is this a current diagnosis for this admission?: Yes (8) Hyperlipidemia Qualifiers: Hyperlipidemia type: unspecified Qualified Code(s): E78.5 - Hyperlipidemia, unspecified Is this a current diagnosis for this admission?: Yes (9) ADHD (attention deficit hyperactivity disorder) Qualifiers: Attention deficit-hyperactivity disorder type: unspecified Qualified Code(s): F90.9 - Attention-deficit hyperactivity disorder, unspecified type Is this a current diagnosis for this admission?: Yes (10) Hypothyroidism Qualifiers: Hypothyroidism type: acquired Qualified Code(s): E03.9 - Hypothyroidism, unspecified Is this a current diagnosis for this admission?: Yes (11) Fibromyalgia Is this a current diagnosis for this admission?: Yes (12) Migraine headache Qualifiers: Migraine type: unspecified Status migrainosus presence: without status migrainosus Intractability: not intractable Qualified Code(s): G43.909 - Migraine, unspecified, not intractable, without status migrainosus Is this a current diagnosis for this admission?: Yes (13) Obstructive sleep apnea Is this a current diagnosis for this admission?: Yes - Time Time Spent with patient: 25-34 minutes - Plan Summary Plan Summary: Continue steroids and nebulizers. We will begin the patient on Advair. Discontinue intravenous antibiotic. Patient received 4-5 days of intravenous Zosyn, we will change it to Augmentin. Out of bed. Physical therapy evaluation.
[2016-12-04] MEDS: AMOXICILLIN TR/POT CLAVULANATE 500-125 MG TAB PO SCH ×2 (15:54→22:23)
[2016-12-04] MEDS: FLUTICASONE/SALMETEROL DISKUS 250-50 MCG/DOSE IH SCH (18:21)
[2016-12-04] MEDS: VERAPAMIL HCL 240 MG TABLET.SA PO SCH (18:21)
[2016-12-04] MEDS: ATORVASTATIN CALCIUM 10 MG TABLET PO SCH (22:23)
[2016-12-05] MEDS: OXYCODONE HCL IR 5 MG TABLET PO PRN ×3 (06:22→21:37)
[2016-12-05] MEDS: LORAZEPAM INJ 2 MG/1 ML VIAL IV PRN ×3 (06:22→18:23)
[2016-12-05] MEDS: HEPARIN SOD (PORCINE) 5,000 UNIT/ML 1 ML SYRINGE SUBCUT SCH ×3 (06:22→21:38)
[2016-12-05] MEDS: AMOXICILLIN TR/POT CLAVULANATE 500-125 MG TAB PO SCH ×3 (06:23→21:36)
[2016-12-05] MEDS: IPRATROPIUM/ALBUTEROL 0.5-2.5 MG/3 ML AMPUL NEB SCH ×3 (08:45→20:43)
[2016-12-05] MEDS: GUAIFENESIN SYRP 200 MG/10 ML UDC PO PRN ×2 (09:42→15:19)
[2016-12-05] MEDS: FLUTICASONE/SALMETEROL DISKUS 250-50 MCG/DOSE IH SCH ×2 (09:43→18:22)
[2016-12-05] MEDS: LEVOTHYROXINE SODIUM 0.025 MG TABLET PO SCH (09:43)
[2016-12-05] MEDS: FUROSEMIDE INJ/PF 40 MG/4 ML SDV IV SCH (09:43)
[2016-12-05] MEDS: PREDNISONE 20 MG TABLET PO SCH (09:44)
[2016-12-05] MEDS: LORATADINE 10 MG TABLET PO SCH (09:44)
[2016-12-05] MEDS: PREGABALIN 100 MG CAPSULE PO SCH ×2 (09:44→21:37)
[2016-12-05] MEDS: DULOXETINE HCL 30 MG CAPSULE.DR PO SCH (09:45)
[2016-12-05] MEDS: GUAIFENESIN 600 MG TABLET.SA PO SCH ×2 (09:45→21:36)
[2016-12-05] MEDS: METHYLPHENIDATE 10 MG PO SCH (09:46)
[2016-12-05] MEDS: FLUTICASONE NASAL SPRAY 50 MCG/SPRY 120 SPRAY/16 GM NASL SCH ×2 (09:46→21:41)
[2016-12-05] MEDS: NICOTINE 14 MG/24 HR PATCH.TD24 TD SCH (09:46)
[2016-12-05] MEDS: OPANA 10 MG PO SCH ×2 (09:47→21:38)
[2016-12-05] MEDS: INSULIN LISPRO 100 UNIT/ML 3 ML VIAL SUBCUT PRN ×2 (12:31→18:27)
--- NOTE | 2016-12-05 14:19 | PDOC PROGRESS REPORT ---
Subjective Progress Note for:: 12/05/16 Subjective:: Feeling better today although still having paroxysmal cough. Patient tried to force to bring out phlegm as she gets anxious. No reported temperature spikes, nausea or vomiting, diarrhea. No paroxysmal nocturnal dyspnea. Room air oxygen saturation greater than 90% even on ambulation. Physical Exam Vital Signs: Temp Pulse Resp BP Pulse Ox 97.2 F 94 18 128/78 H 95 12/05/16 11:51 12/05/16 13:56 12/05/16 13:56 12/05/16 11:51 12/05/16 13:56 Intake & Output 12/04/16 12/05/16 12/06/16 06:59 06:59 06:59 Intake Total 3131 2586 1020 Output Total 500 1400 Balance 2631 1186 1020 Weight 106.7 kg 107.2 kg General appearance: PRESENT: no acute distress, cooperative, obese Head exam: PRESENT: normocephalic Eye exam: PRESENT: EOMI Mouth exam: PRESENT: moist, neck supple Neck exam: ABSENT: JVD Respiratory exam: PRESENT: clear to auscultation leni - Anteriorly bilateral, rhonchi - occsaional posteriorly. ABSENT: wheezes Cardiovascular exam: PRESENT: RRR. ABSENT: gallop GI/Abdominal exam: PRESENT: normal bowel sounds, soft Extremities exam: ABSENT: pedal edema Neurological exam: PRESENT: alert, awake, oriented to situation Skin exam: PRESENT: dry, warm. ABSENT: cyanosis Results Laboratory Results: 12/03/16 06:07 12/03/16 06:07 11/30/16 11/30/16 01:00 01:00 Creatine Kinase 51 CK-MB (CK-2) 0.29 Troponin I < 0.012 Impressions: Chest/Abdomen CTA 11/28/16 00:48 IMPRESSION: 1. NORMAL CTA OF THE CHEST. NO PULMONARY EMBOLI. 2. FAIRLY EXTENSIVE BILATERAL PATCHY INFILTRATES, MOST CONSISTENT WITH MULTIFOCAL PNEUMONIA. Chest X-Ray 12/01/16 00:00 IMPRESSION: Mild diffuse bilateral airspace disease worrisome for pulmonary edema Assessment & Plan - Diagnosis (1) Pneumonia Qualifiers: Pneumonia type: due to unspecified organism Laterality: bilateral Lung location: unspecified part of lung Qualified Code(s): J18.9 - Pneumonia , unspecified organism Is this a current diagnosis for this admission?: Yes (2) COPD exacerbation Is this a current diagnosis for this admission?: Yes (3) Diabetes 1.5, managed as type 2 Is this a current diagnosis for this admission?: Yes (4) Seizure Is this a current diagnosis for this admission?: Yes (5) Diabetic gastroparesis Is this a current diagnosis for this admission?: Yes (6) Obesity Qualifiers: Obesity type: unspecified obesity type Obesity severity: unspecified obesity severity Qualified Code(s): E66.9 - Obesity, unspecified Is this a current diagnosis for this admission?: Yes (7) Hypertension Qualifiers: Hypertension type: essential hypertension Qualified Code(s): I10 - Essential (primary) hypertension Is this a current diagnosis for this admission?: Yes (8) Hyperlipidemia Qualifiers: Hyperlipidemia type: unspecified Qualified Code(s): E78.5 - Hyperlipidemia, unspecified Is this a current diagnosis for this admission?: Yes (9) ADHD (attention deficit hyperactivity disorder) Qualifiers: Attention deficit-hyperactivity disorder type: unspecified Qualified Code(s): F90.9 - Attention-deficit hyperactivity disorder, unspecified type Is this a current diagnosis for this admission?: Yes (10) Hypothyroidism Qualifiers: Hypothyroidism type: acquired Qualified Code(s): E03.9 - Hypothyroidism, unspecified Is this a current diagnosis for this admission?: Yes (11) Fibromyalgia Is this a current diagnosis for this admission?: Yes (12) Migraine headache Qualifiers: Migraine type: unspecified Status migrainosus presence: without status migrainosus Intractability: not intractable Qualified Code(s): G43.909 - Migraine, unspecified, not intractable, without status migrainosus Is this a current diagnosis for this admission?: Yes (13) Obstructive sleep apnea Is this a current diagnosis for this admission?: Yes - Time Time Spent with patient: 15-24 minutes - Plan Summary Plan Summary: Discontinue oxygen. Wean steroids, stop IV fluids, stop Lasix. Continue supportive care. Continue oral antibiotics. Advair started and help decrease her symptoms. We will continue. Discharged home in the morning if patient remains stable.
--- NOTE | 2016-12-05 16:19 | PDOC DISCHARGE SUMMARY ---
General - Admit/Disc Date/PCP Admission Date/Primary Care Provider: 11/28/16 02:21 DELANEY MCBRIDE Discharge Date: 12/06/16 - Discharge Diagnosis (1) Pneumonia Is this a current diagnosis for this admission?: Yes (2) COPD exacerbation Is this a current diagnosis for this admission?: Yes (3) Diabetes 1.5, managed as type 2 Is this a current diagnosis for this admission?: Yes (4) Seizure Is this a current diagnosis for this admission?: Yes (5) Diabetic gastroparesis Is this a current diagnosis for this admission?: Yes (6) Obesity Is this a current diagnosis for this admission?: Yes (7) Hypertension Is this a current diagnosis for this admission?: Yes (8) Hyperlipidemia Is this a current diagnosis for this admission?: Yes (9) ADHD (attention deficit hyperactivity disorder) Is this a current diagnosis for this admission?: Yes (10) Hypothyroidism Is this a current diagnosis for this admission?: Yes (11) Fibromyalgia Is this a current diagnosis for this admission?: Yes (12) Migraine headache Is this a current diagnosis for this admission?: Yes (13) Obstructive sleep apnea Is this a current diagnosis for this admission?: Yes - Additional Information Resuscitation Status: Full Code Discharge Diet: Cardiac - low-fat low-salt, Diabetic - no concentrated sweets Discharge Activity: Activity As Tolerated, Balance Activity w/Rest Home Medications: Duloxetine HCl [Cymbalta] 60 mg PO BID 11/28/16 Hum Insulin NPH/Reg Insulin Hm [Novolin 70-30 100 Unit/ml Vial] 25 units SQ WSUPPER 11/28/16 Hum Insulin NPH/Reg Insulin Hm [Novolin 70-30 100 Unit/ml Vial] 35 units SQ [id number] 11/28/16 Hydroxyzine Pamoate [Vistaril 25 mg Capsule] 25 mg PO DAILYP PRN 11/28/16 Levothyroxine Sodium [Synthroid 0.025 mg Tablet] 0.025 mg PO QAM 11/28/16 Linaclotide [Linzess] 290 mcg PO DAILY 11/28/16 Lisinopril/Hydrochlorothiazide [Lisinopril-Hctz 20-12.5 mg Tab] 1 each PO QAM Metformin HCl [Glucophage] 1,000 mg PO BID 11/28/16 Methocarbamol [Robaxin 750 mg Tablet] 750 mg PO QIDP PRN 11/28/16 Methylphenidate HCl [Methylphenidate ER] 10 mg PO DAILY 11/28/16 Oxycodone HCl [Oxycodone HCl 10 MG Tablet] 10 mg PO 5XDP PRN 11/28/16 Oxymorphone HCl [Opana ER] 20 mg PO Q12 11/28/16 Pregabalin [Lyrica] 300 mg PO Q12 11/28/16 Propranolol HCl [Inderal 10 mg Tablet] 10 mg PO DAILYP PRN 11/28/16 Rosuvastatin Calcium [Crestor 5 mg Tablet] 5 mg PO QPM 11/28/16 Verapamil HCl [Verapamil ER] 480 mg PO QPM 11/28/16 Zolpidem Tartrate [Ambien] 10 mg PO HSP PRN 11/28/16 Albuterol Sulfate [Ventolin 0.083% Neb 2.5 mg/3 mL Ampul] 2.5 mg NEB Q4H PRN # 60 vial.neb 12/05/16 Amox Tr/Potassium Clavulanate [Augmentin "500" Tablet] 1 tab PO Q8 #24 tablet 12/05/16 Fluticasone/Salmeterol [Advair 250-50 Diskus 14 Dose/Diskus] 1 inh IH BID #1 inhaler 12/05/16 Loratadine [Claritin 10 mg Tablet] 10 mg PO DAILY tablet 12/05/16 Prednisone [Sterapred Ds] 1 pkg PO ASDIR PRN 12 Days 12/05/16 Additional Information: Home health for physical therapy. History of Present Illness Patient complains of: Shortness of breath History of Present Illness: REINALDO CLARK is a 46 year old female, with anxiety, COPD who was recently treated for respiratory tract infection presents to the hospital with increasing shortness of breath with a lot of wheezing, given bronchodilators, placed on BiPAP, and was referred for admission. For details please refer to history and physical examination performed by the admitting physician. Hospital Course Hospital Course: The patient was admitted to [facility] and was maintained on BiPAP. Patient was started on nebulizers, intravenous steroids, broad-spectrum antibiotic. Intravenous fluid was likewise administered. Patient however exhibit a lot of anxiety and panic. Patient will develop hyperventilation, hypoxia, requiring ICU transfer. Patient was placed on her anxiety medication, and benzodiazepine , and was maintained on BiPAP, and was eventually successfully transferred back to [facility]. Her cultures remained negative. She will have bouts of respiratory discomfort where chest CT scan revealed patchy infiltrates bilateral and a follow-up chest x-ray showed increasing infiltrates likely from fluid overload. She was started on intravenous diuretics, echocardiogram showed a normal ejection fraction. Subsequently the patient started to improve. Shortness of breath slowly improve, with additional counseling. Eventually she was able to be weaned off the BiPAP and maintained on nasal cannula oxygen. Upon continued improvement, intravenous antibiotic shifted to oral, intravenous steroids shifted to oral as well. Her intravenous fluid was discontinued and the patient continues to improve. She was able to ambulate around without oxygen prior to discharge. Room air oxygenation greater than 90%. She was referred for physical therapy. Her symptoms improved more with the addition of inhaled steroid/bronchodilator combination. The rest of the hospital stays unremarkable. Physical Exam Vital Signs: Temp Pulse Resp BP Pulse Ox 97.2 F 94 18 128/78 H 95 12/05/16 11:51 12/05/16 13:56 12/05/16 13:56 12/05/16 11:51 12/05/16 13:56 Intake & Output 12/04/16 12/05/16 12/06/16 06:59 06:59 06:59 Intake Total 3131 2586 1020 Output Total 500 1400 Balance 2631 1186 1020 Weight 106.7 kg 107.2 kg General appearance: PRESENT: no acute distress, cooperative, obese Head exam: PRESENT: normocephalic Eye exam: PRESENT: EOMI Mouth exam: PRESENT: moist, neck supple Neck exam: ABSENT: JVD Respiratory exam: PRESENT: clear to auscultation leni Cardiovascular exam: PRESENT: RRR. ABSENT: gallop GI/Abdominal exam: PRESENT: soft. ABSENT: distended, tenderness Extremities exam: ABSENT: pedal edema Neurological exam: PRESENT: alert, awake, oriented to person, oriented to place , oriented to time, oriented to situation Skin exam: PRESENT: dry, warm. ABSENT: cyanosis Results Laboratory Results: 12/03/16 06:07 12/03/16 06:07 11/30/16 11/30/16 01:00 01:00 Creatine Kinase 51 CK-MB (CK-2) 0.29 Troponin I < 0.012 Impressions: Chest/Abdomen CTA 11/28/16 00:48 IMPRESSION: 1. NORMAL CTA OF THE CHEST. NO PULMONARY EMBOLI. 2. FAIRLY EXTENSIVE BILATERAL PATCHY INFILTRATES, MOST CONSISTENT WITH MULTIFOCAL PNEUMONIA. Chest X-Ray 12/01/16 00:00 IMPRESSION: Mild diffuse bilateral airspace disease worrisome for pulmonary edema Qualifiers PATEINT BEING DISCHARGED WITH ANY OF THE FOLLOWING DIAGNOSIS?: No Plan Discharge Plan: Follow-up with primary care physician in one week. Follow-up with pulmonary, Dr. Jaime in 2 weeks. Time Spent: Less than 30 Minutes
[2016-12-05] MEDS: VERAPAMIL HCL 240 MG TABLET.SA PO SCH (18:21)
[2016-12-05] MEDS: ATORVASTATIN CALCIUM 10 MG TABLET PO SCH (21:36)
[2016-12-06] MEDS: GUAIFENESIN SYRP 200 MG/10 ML UDC PO PRN ×2 (00:37→06:45)
[2016-12-06] MEDS: LORAZEPAM INJ 2 MG/1 ML VIAL IV PRN ×2 (00:38→09:29)
[2016-12-06] MEDS: ALBUTEROL SULFATE 0.083% NEB 2.5 MG/3 ML AMPUL NEB PRN (00:44)
[2016-12-06] MEDS: OXYCODONE HCL IR 5 MG TABLET PO PRN (06:44)
[2016-12-06] MEDS: AMOXICILLIN TR/POT CLAVULANATE 500-125 MG TAB PO SCH (06:45)
[2016-12-06] MEDS: HEPARIN SOD (PORCINE) 5,000 UNIT/ML 1 ML SYRINGE SUBCUT SCH (06:45)
[2016-12-06] MEDS: IPRATROPIUM/ALBUTEROL 0.5-2.5 MG/3 ML AMPUL NEB SCH (08:31)
[2016-12-06] MEDS: NICOTINE 14 MG/24 HR PATCH.TD24 TD SCH (09:17)
[2016-12-06] MEDS: FLUTICASONE NASAL SPRAY 50 MCG/SPRY 120 SPRAY/16 GM NASL SCH (09:18)
[2016-12-06] MEDS: PREGABALIN 100 MG CAPSULE PO SCH (09:18)
[2016-12-06] MEDS: LEVOTHYROXINE SODIUM 0.025 MG TABLET PO SCH (09:18)
[2016-12-06] MEDS: DULOXETINE HCL 30 MG CAPSULE.DR PO SCH (09:19)
[2016-12-06] MEDS: PREDNISONE 20 MG TABLET PO SCH (09:19)
[2016-12-06] MEDS: GUAIFENESIN 600 MG TABLET.SA PO SCH (09:19)
[2016-12-06] MEDS: OPANA 10 MG PO SCH (09:20)
[2016-12-06] MEDS: METHYLPHENIDATE 10 MG PO SCH (09:20)
[2016-12-06] MEDS: LORATADINE 10 MG TABLET PO SCH (09:20)
[2016-12-06] MEDS: FLUTICASONE/SALMETEROL DISKUS 250-50 MCG/DOSE IH SCH (09:28)
[2016-12-06 10:28] VITALS: BP 126/73
--- NOTE | 2016-12-06 11:43 | PDOC PROGRESS REPORT ---
Subjective Progress Note for:: 12/06/16 Subjective:: Complains of a sore throat when she swallows. Physical Exam Vital Signs: Temp Pulse Resp BP Pulse Ox 98.1 F 82 16 126/73 H 93 12/06/16 10:22 12/06/16 10:22 12/06/16 10:22 12/06/16 10:22 12/06/16 10:22 Intake & Output 12/05/16 12/06/16 12/07/16 06:59 06:59 06:59 Intake Total 2586 4063 Output Total 1400 Balance 1186 4063 Weight 107.2 kg 106.4 kg General appearance: PRESENT: no acute distress Eye exam: PRESENT: conjunctiva pink. ABSENT: scleral icterus Mouth exam: PRESENT: other - Erythematous oropharynx Neck exam: ABSENT: JVD Respiratory exam: PRESENT: clear to auscultation leni. ABSENT: rales, rhonchi, wheezes Cardiovascular exam: PRESENT: RRR. ABSENT: diastolic murmur, rubs, systolic murmur GI/Abdominal exam: PRESENT: normal bowel sounds, soft. ABSENT: distended, guarding, mass, organolmegaly, rebound, tenderness Extremities exam: ABSENT: calf tenderness, clubbing, pedal edema Neurological exam: PRESENT: alert, awake, oriented to person, oriented to place , oriented to time, oriented to situation, CN II-XII grossly intact. ABSENT: motor sensory deficit Psychiatric exam: PRESENT: appropriate affect Skin exam: PRESENT: dry, intact, warm. ABSENT: cyanosis, rash Results Laboratory Results: 12/03/16 06:07 12/03/16 06:07 11/30/16 11/30/16 01:00 01:00 Creatine Kinase 51 CK-MB (CK-2) 0.29 Troponin I < 0.012 Impressions: Chest/Abdomen CTA 11/28/16 00:48 IMPRESSION: 1. NORMAL CTA OF THE CHEST. NO PULMONARY EMBOLI. 2. FAIRLY EXTENSIVE BILATERAL PATCHY INFILTRATES, MOST CONSISTENT WITH MULTIFOCAL PNEUMONIA. Chest X-Ray 12/01/16 00:00 IMPRESSION: Mild diffuse bilateral airspace disease worrisome for pulmonary edema Assessment & Plan - Diagnosis (1) Pneumonia Qualifiers: Pneumonia type: due to unspecified organism Laterality: bilateral Lung location: unspecified part of lung Qualified Code(s): J18.9 - Pneumonia , unspecified organism Is this a current diagnosis for this admission?: YesPlan: Patient has community-acquired pneumonia. Patient is stable for discharge and will be sent home on Augmentin. Please see the discharge summary dictated yesterday. (2) COPD exacerbation Is this a current diagnosis for this admission?: YesPlan: Continues to improve. Will go home on a steroid taper. (3) Diabetes 1.5, managed as type 2 Is this a current diagnosis for this admission?: Yes (4) Tobacco dependence Is this a current diagnosis for this admission?: Yes (5) Seizure Is this a current diagnosis for this admission?: Yes - Time Time Spent with patient: 35 or more minutes - Plan Summary Plan Summary: Patient is discharged home. Please see discharge summary dictated yesterday for full details. She is also given Magic mouthwash for oral thrush.
== END 2016-12-06 11:40 | disposition home health service (06) | DRG 190 ==
LOC: ER 22:19 → EH 11-28 02:21 → UNDOADMIN 11-28 02:37 → EH 11-28 02:37 → 5 11-28 03:47 → ICU 11-30 00:47 → 3S 11-30 21:34
PROVIDERS: ADMIT Internal Medicine; ATTEND Internal Medicine
PROC: 5A09457 Assistance with Respiratory Ventilation, 24-96 Consecutive Hours, Continuous Positive Airway Pressure (ICD-10-PCS; principal; 2016-11-27)
PROC: 3E0 Administration, Physiological Systems and Anatomical Regions, Introduction (ICD-10-PCS; 2016-11-29)
DX: J44.1 Chronic obstructive pulmonary disease with (acute) exacerbation (principal); J18.9 Pneumonia, unspecified organism; J45.41 Moderate persistent asthma with (acute) exacerbation; Z68.41 Body mass index [BMI] 40.0-44.9, adult; J44.0 Chronic obstructive pulmonary disease with (acute) lower respiratory infection; R56.9 Unspecified convulsions; E13.43 Other specified diabetes mellitus with diabetic autonomic (poly)neuropathy; K31.84 Gastroparesis; I10 Essential (primary) hypertension; E78.5 Hyperlipidemia, unspecified; F90.9 Attention-deficit hyperactivity disorder, unspecified type; G43.909 Migraine, unspecified, not intractable, without status migrainosus; M79.7 Fibromyalgia; E03.9 Hypothyroidism, unspecified; G47.33 Obstructive sleep apnea (adult) (pediatric); F41.9 Anxiety disorder, unspecified; M19.90 Unspecified osteoarthritis, unspecified site; E66.01 Morbid (severe) obesity due to excess calories; Z79.4 Long term (current) use of insulin; Z79.899 Other long term (current) drug therapy; Z90.49 Acquired absence of other specified parts of digestive tract; Z90.710 Acquired absence of both cervix and uterus; Z88.2 Allergy status to sulfonamides; Z88.1 Allergy status to other antibiotic agents; Z88.8 Allergy status to other drugs, medicaments and biological substances; Z91.040 Latex allergy status; Z83.3 Family history of diabetes mellitus
CPT/HCPCS: 36415; 71010; 71020; 71275; 80048; 80053; 80202; 81001; 82550; 82553; 82803; 82962; 83735; 83880; 84132; 84443; 84484; 85025; 87040; 87070; 87205; 90686; 93005; 93010; 93306; 94640; 94660; 94799; 96365; 99291; G8978-GP; G8979-GP; G8980-GP; J0456; J0692; J1580; J1630; J1644; J1815; J1940; J2060; J2543; J2930; J3370; J3490; J7030; J7040; J7060; J7512; J7620; J7685

== ENCOUNTER 2016-12-28 19:54 | Emergency (ER) | payer MEDICARE ==
--- NOTE | 2016-12-29 01:29 | ER Document Report ---
ED General - General Chief Complaint: Breathing Difficulty Stated Complaint: DIFFICULTY BREATHING Mode of Arrival: Medic Information source: Patient, H Records Notes: This is a 46-year-old female with a history of COPD and diabetes who presents with increasing shortness of breath. Of note she was admitted at this facility from November 28 through December 06 of this year for bilateral pneumonia. She states that for the past few days she feels similar to when she had her pneumonia. She has had subjective fevers and chills and sweats at home. She also feels short of breath. She has had nausea with no vomiting. Today she felt worse and so she didn't take 3 nebulizer treatments at home prior to calling EMS. She continues to smoke but is trying to quit and is down to less than a half a pack per day. TRAVEL OUTSIDE OF THE [place] IN LAST 30 DAYS: No - Related Data Allergies/Adverse Reactions: adhesive [Adhesive] Allergy (Verified 11/25/16 16:08) cephalexin monohydrate [From Keflex] Allergy (Verified 11/30/16 00:24) cholestyramine [From Questran] Allergy (Verified 11/25/16 16:08) ciprofloxacin [From Cipro] Allergy (Verified 11/25/16 16:08) lanolin alcohols [Wool Alcohols] Allergy (Verified 11/25/16 16:08) latex [Latex] Allergy (Verified 11/25/16 16:08) nickel [Nickel] Allergy (Verified 11/25/16 16:08) Waikhhe-Jdh-Fpd Reductase Inhibitor Allergy (Verified 11/25/16 16:08) Sucrose [From Questran] Allergy (Verified 11/25/16 16:08) Sulfa (Sulfonamide Antibiotics) Allergy (Verified 11/25/16 16:08) trazodone [Trazodone] Allergy (Verified 11/25/16 16:08) Past Medical History - Social History Smoking Status: Current Every Day Smoker - trying to quit, now down to less than 1/2 ppd Family History: DM - Past Medical History Cardiac Medical History: Reports: Hx Hypercholesterolemia, Hx Hypertension Pulmonary Medical History: Reports: Hx Pneumonia, Hx Sleep Apnea Neurological Medical History: Reports: Hx Migraine, Hx Seizures Endocrine Medical History: Reports: Hx Diabetes Mellitus Type 2, Hx Hypothyroidism Renal/ Medical History: Denies: Hx Peritoneal Dialysis Musculoskeltal Medical History: Reports Hx Arthritis, Reports Hx Fibromyalgia Psychiatric Medical History: Reports: Hx Anxiety - Takes clonazepam has been on several other benzos in the past, Hx Attention Deficit Hyperactivity Disorder - Takes Vyvanse Denies: Hx Depression Past Surgical History: Reports: Hx Section - x1, Hx Cholecystectomy, Hx Hysterectomy, Hx Orthopedic Surgery - back x2 - Immunizations Hx Diphtheria, Pertussis, Tetanus Vaccination: Yes Physical Exam - Vital signs Vitals: Pulse BP Pulse Ox 100 127/94 H 100 12/28/16 20:49 12/28/16 20:49 12/28/16 20:49 Course - Re-evaluation Re-evalutation: 12/29/16 06:18 CT chest demonstrates no PE, no infiltrate, no pulmonary edema. I suspect a component of her symptoms are secondary to anxiety, as well as a component of COPD with recent discontinuation of oral prednisone. At this point patient is stable for discharge, as she is able to ambulate without a drop in her pulse ox. Will treat COPD exacerbation with augmentin ( the oral antibiotic she tolerated well upon last hospital discharge) and resuming a course of prednisone. Smoking cessation again encouraged. Follow up with PCP in [place] this week. Strict return precautions discussed. Patient and family comfortable with plan. 12/29/16 06:37 Pt states that she plans to follow up with her pain management physician and her psychiatrist as soon as possible to discuss being placed back on her ativan or klonopin for anxiety, as she states her symptoms have been much worse the past few weeks since stopping those medications. - Vital Signs Vital signs: Temp Pulse Resp BP Pulse Ox 98.0 F 100 17 137/86 H 96 12/29/16 03:10 12/28/16 20:49 12/29/16 06:11 12/29/16 06:11 12/29/16 06:11 - Laboratory Result Diagrams: 12/29/16 02:38 12/29/16 02:38 Laboratory results interpreted by me: 12/28/16 12/29/16 12/29/16 22:09 02:30 02:38 WBC 10.6 H ABG pO2 ABG O2 Saturation Glucose POC Glucose 154 H Calcium Creatine Kinase Urine Protein 30 H Urine Bilirubin SMALL H Urine Urobilinogen 2.0 H 12/29/16 12/29/16 12/29/16 02:38 02:38 02:38 WBC ABG pO2 ABG O2 Saturation Glucose 146 H POC Glucose 175 H Calcium 10.3 H Creatine Kinase 22 L Urine Protein Urine Bilirubin Urine Urobilinogen 12/29/16 04:56 WBC ABG pO2 67.3 L ABG O2 Saturation 93.9 L Glucose POC Glucose Calcium Creatine Kinase Urine Protein Urine Bilirubin Urine Urobilinogen - Diagnostic Test Radiology reviewed: Reports reviewed - CTA: no PE, no infiltrate Discharge - Discharge Clinical Impression: Obstructive chronic bronchitis with exacerbation, Anxiety, Tobacco abuse Condition: Stable Disposition: HOME, SELF-CARE Additional Instructions: Anxiety The physician feels that some of your health problems are being caused by anxiety. Anxiety affects your health in many ways. Anxiety alone can cause palpitations, sweats, chest pains, abdominal pains, shortness of breath, and headaches. It contributes to ulcer disease, high blood pressure, irritable bowel syndrome, and has been shown to cause flare-ups of many other diseases. Anxiety is not a simple disorder to treat. If the anxiety is due to recent life stresses, you may simply need time to "work through" the changes. If the anxiety is due to an underlying unhappiness with yourself or due to psychiatric disturbance, professional help will be needed. Your physician can refer you for further help if needed. Anti-anxiety medication is occasionally given if the stress is acute or if you are having trouble sleeping. Chronic or frequent use of these medications is not a good idea because the body becomes reliant on it, preventing you from dealing with life's normal stresses.Chronic Obstructive Lung Disease You have chronic obstructive lung disease (COPD). The symptoms come from emphysema (damage to small airways, with trapping of air in large sacks in the lung) and chronic bronchitis (repeated infection and damage to larger airways). The cause is almost always cigarette smoking, although dust exposure, asthma, and infections contribute. You should avoid fumes, dust, and smoke (especially tobacco smoke). Your condition will flare from time to time. There is no cure, but the symptoms can be treated. Bronchodilators (asthma medicine) are often helpful. Antibiotics help when infection is present. When shortness of breath is severe, we may prescribe cortisone medication. If medicine doesn't help enough, we can arrange for you to have an oxygen tank at home. Notify your doctor at once if sputum becomes thick, foul, or bloody, if you develop a fever or chest pain, or if your shortness of breath worsens. Take you antibiotics and prednisone as prescribed. Please follow up with your PCP in the next 24-48 hours. Return to the ER for high fever or worsening symptoms or concerns. Prescriptions: Amox Tr/Potassium Clavulanate [Augmentin 875-125 Tablet] 1 tab PO BID 10 Days Amoxicillin/Potassium Clav [Augmentin 875-125 Tablet] 1 each PO BID #14 tablet Lorazepam [Ativan 0.5 mg Tablet] 0.5 mg PO BID #6 tab Prednisone [Deltasone 20 mg Tablet] 3 tab PO DAILY 4 Days
[2016-12-29 02:56] LABS: ABSOLUTE BASOPHILS # (AUTO) 0.1 10^3/uL (0.0-0.2); ABSOLUTE EOSINOPHILS # (AUTO) 0.1 10^3/uL (0.0-0.6); ABSOLUTE LYMPHOCYTES (AUTO) 1.8 10^3/uL (0.5-4.7); ABSOLUTE MONOCYTES (AUTO) 0.5 10^3/uL (0.1-1.4); ABSOLUTE NEUT (AUTO) 8.1 10^3/uL (1.7-8.2); BASOPHILS % (AUTO) 0.6 % (0-2); HEMATOCRIT 44.3 % (36.0-47.0); HEMOGLOBIN 15.5 g/dL (12.0-15.5); HGB HCT DIFFERENCE 2.2; MEAN CORPUSCULAR VOLUME 89 fl (80-97); MONOCYTES % (AUTO) 4.6 % (3-13); RED BLOOD COUNT 4.98 10^6/uL (3.72-5.28); SEGMENTED NEUTROPHILS % (AUTO) 76.8 % (42-78); WHITE BLOOD COUNT 10.6 10^3/uL (4.0-10.5)
[2016-12-29] MEDS ORDERED: LORAZEPAM INJ 2 MG/1 ML VIAL IV ONE ×3 (03:11→06:35)
[2016-12-29 03:12] LABS: ALANINE AMINOTRANSFERASE 40 U/L (9-52); ALBUMIN 4.7 g/dL (3.5-5.0); ALKALINE PHOSPHATASE 124 U/L (38-126); ANION GAP 15 (5-19); ASPARTATE AMINO TRANSFERASE 26 U/L (14-36); BILIRUBIN,DIRECT 0.3 mg/dL (0.0-0.4); BILIRUBIN,TOTAL 0.6 mg/dL (0.2-1.3); BLOOD UREA NITROGEN 11 mg/dL (7-20); CALCIUM 10.3 mg/dL (8.4-10.2); CARBON DIOXIDE 23 mmol/L (22-30); CHLORIDE 104 mmol/L (98-107); CREATININE RESULT 0.55 mg/dL (0.52-1.25); GLUCOSE 146 mg/dL (75-110); POTASSIUM 4.8 mmol/L (3.6-5.0); SODIUM 142.3 mmol/L (137-145); TOTAL PROTEIN 7.7 g/dL (6.3-8.2)
[2016-12-29 03:38] LABS: AMORPHOUS SEDIMENT,URINE 4+ /HPF; APPEARANCE,URINE TURBID; BILIRUBIN,URINE SMALL (NEGATIVE); GLUCOSE, URINE NEGATIVE (NEGATIVE); KETONES,URINE NEGATIVE (NEGATIVE); LEUKOCYTE ESTERASE,URINE NEGATIVE (NEGATIVE); NITRITE,URINE NEGATIVE (NEGATIVE); PROTEIN,URINE 30 mg/dL (NEGATIVE); URINE SPECIFIC GRAVITY 1.026
[2016-12-29 04:05] LABS: CREATINE KINASE MB < 0.22 ng/mL (<4.55); TROPONIN I < 0.012 ng/mL
[2016-12-29] MEDS ORDERED: NORMAL SALINE 500 ML IV ONE ×2 (04:07→06:15)
[2016-12-29 05:10] LABS: ARTERIAL BLOOD BASE EXCESS -0.4 mmol/L; ARTERIAL BLOOD O2 SATURATION 93.9 % (94-98)
[2016-12-29] MEDS ORDERED: NORMAL SALINE 1000 ML 1,000 ML IV ONE (06:14)
[2016-12-29] MEDS ORDERED: PREDNISONE 20 MG TABLET PO ONE (06:16)
[2016-12-29 06:47] VITALS: BP 122/76
--- NOTE | 2016-12-29 07:42 | EKG REPORT ---
SEVERITY:- OTHERWISE NORMAL ECG - SINUS TACHYCARDIA : Confirmed by: Ida Ochoa MD 29-Dec-2016 07:41:50
== END 2016-12-29 06:53 | disposition home or self-care (01) ==
LOC: ER 19:54
DX: S76.912A Strain of unspecified muscles, fascia and tendons at thigh level, left thigh, initial encounter (principal); M79.605 Pain in left leg; M79.652 Pain in left thigh; H57.10 Ocular pain, unspecified eye; X58.XXXA Exposure to other specified factors, initial encounter
CPT/HCPCS: 93005; 96376; 99285; 96361; 96374; 36415; 87040; 82553; 82962; 82803; 82550; 85025; 80053; 81001; 84484; 83880; 71020; 71275; 93010; 36600; J2060; A9270; J7040; J7512

== ENCOUNTER → 2018-01-16 | Outpatient (CLI) | payer MEDICAID, MEDICARE ==
--- NOTE | 2018-01-16 14:46 | WOMENS IMAGING REPORT ---
EXAM DESCRIPTION: 3D DX MAMMO BILAT; U/S BREAST UNILAT LIMITED COMPLETED DATE/TIME: 01/16/2018 10:27 am; 01/16/2018 11:04 am REASON FOR STUDY: UNSPECIFIED LUMP; N63.20; N63.20 N63.20 UNSPECIFIED LUMP IN THE LEFT BREAST, UNSP ECIFIED QUAD COMPARISON: None. TECHNIQUE: Standard craniocaudal and mediolateral oblique views of each breast recorded using digita l acquisition and breast tomosynthesis. True lateral view left breast. LIMITATIONS: None. FINDINGS: RIGHT BREAST MASSES: No suspicious masses. CALCIFICATIONS: No new or suspicious calcifications. ARCHITECTURAL DISTORTION: None. DEVELOPING DENSITY: None. ASYMMETRY: None noted. OTHER: No other significant findings. LEFT BREAST MASSES: No suspicious masses. CALCIFICATIONS: No new or suspicious calcifications. ARCHITECTURAL DISTORTION: None. DEVELOPING DENSITY: None. ASYMMETRY: None noted. OTHER: No other significant finding. Read with the assistance of CAD: .[facility] - R2 Cenova Version 1.3 .[facility] - R2 Cenova Version 1.3 .[facility] - R2 Cenova Version 2.4 .[facility] - R2 Cenova Version 2.4 .[facility] - R2 Loaders Version 9.2 Ultrasound of the left breast demonstrates no suspicious mass. Superficial 8 x 8 x 4 mm hypoechoic l esion most likely a sebaceous cyst lower outer quadrant 5 o'clock. IMPRESSION: No evidence of malignancy. BREAST DENSITY: a. The breasts are almost entirely fatty. BIRAD: 1 Negative. RECOMMENDATION: RECOMMENDED FOLLOW UP: Birads 1 or 2: The patient should resume routine screening . SPECIFIC INTERVENTION/IMAGING/CONSULTATION RECOMMENDED:No additional intervention/ imaging/consultati on needed at this time. COMMUNICATION:The imaging findings were not discussed with the patient. Her referring provider has be en notified of the findings. COMMENT: The patient has been notified of the results by letter per SA requirements. Additional no tification policies are in place for contacting patient with suspicious or incomplete findings. Quality ID #[id number]: The [employer] recommends an annual screening mammogram for women aged 40 years or over. This facility utilizes a reminder system to ensure that all patients receive reminder letters, and/or direct phone calls for appointments. This includes reminders for routine scr eening mammograms, diagnostic mammograms, or other Breast Imaging Interventions when appropriate. Th is patient will be placed in the appropriate reminder system. The [employer] (ACR) has developed recommendations for screening MRI of the breast s in certain patient populations, to be used in conjunction with mammography. Breast MRI surveillanc e may be appropriate for women with more than 20% lifetime risk of developing breast cancer as deter mined by genetic testing, significant family history of the disease, or history of mantle radiation f or Hodgkins Disease. ACR Practice Guidelines 2008. DBT Technology DBT is a type of tomographic mammography. With conventional mammography, overlapping breast tissue ma y make lesions difficult to detect, even with good compression. DBT uses an x-ray tube that rotates a round the breast, taking images at different angles. These images are then combined to create thin sl ices of the breast that the radiologist can view as a 3D reconstruction. The [employer] unit can perform full-field digital mammograms (2D imaging); or DBT (3D imaging); or both, in a combination mode that quickly performs both the mammogram and the tomosynthesis scan while the breast is still compressed. PQRS 6045F: Fluoroscopic imaging is not utilized for breast tomosynthesis. TECHNICAL DOCUMENTATION: FINDING NUMBER: (1) ASSESSMENT: (1) JOB ID: [id number] [employer]- All Rights Reserved Reading location - IP/workstation name: [email or web address]
--- NOTE | 2018-01-16 14:46 | WOMENS IMAGING REPORT ---
EXAM DESCRIPTION: 3D DX MAMMO BILAT; U/S BREAST UNILAT LIMITED COMPLETED DATE/TIME: 01/16/2018 10:27 am; 01/16/2018 11:04 am REASON FOR STUDY: UNSPECIFIED LUMP; N63.20; N63.20 N63.20 UNSPECIFIED LUMP IN THE LEFT BREAST, UNSP ECIFIED QUAD COMPARISON: None. TECHNIQUE: Standard craniocaudal and mediolateral oblique views of each breast recorded using digita l acquisition and breast tomosynthesis. True lateral view left breast. LIMITATIONS: None. FINDINGS: RIGHT BREAST MASSES: No suspicious masses. CALCIFICATIONS: No new or suspicious calcifications. ARCHITECTURAL DISTORTION: None. DEVELOPING DENSITY: None. ASYMMETRY: None noted. OTHER: No other significant findings. LEFT BREAST MASSES: No suspicious masses. CALCIFICATIONS: No new or suspicious calcifications. ARCHITECTURAL DISTORTION: None. DEVELOPING DENSITY: None. ASYMMETRY: None noted. OTHER: No other significant finding. Read with the assistance of CAD: .[facility] - R2 [employer] Version 1.3 .[facility] - R2 Cenova Version 1.3 .[facility] - R2 C[employer]ova Version 2.4 .[facility] [place] - R2 Cenova Version 2.4 .[facility] - R2 [employer] Version 9.2 Ultrasound of the left breast demonstrates no suspicious mass. Superficial 8 x 8 x 4 mm hypoechoic l esion most likely a sebaceous cyst lower outer quadrant 5 o'clock. IMPRESSION: No evidence of malignancy. BREAST DENSITY: a. The breasts are almost entirely fatty. BIRAD: 1 Negative. RECOMMENDATION: RECOMMENDED FOLLOW UP: Birads 1 or 2: The patient should resume routine screening . SPECIFIC INTERVENTION/IMAGING/CONSULTATION RECOMMENDED:No additional intervention/ imaging/consultati on needed at this time. COMMUNICATION:The imaging findings were not discussed with the patient. Her referring provider has be en notified of the findings. COMMENT: The patient has been notified of the results by letter per [place] requirements. Additional no tification policies are in place for contacting patient with suspicious or incomplete findings. Quality ID #[id number]: The [employer] recommends an annual screening mammogram for women aged 40 years or over. This facility utilizes a reminder system to ensure that all patients receive reminder letters, and/or direct phone calls for appointments. This includes reminders for routine scr eening mammograms, diagnostic mammograms, or other Breast Imaging Interventions when appropriate. Th is patient will be placed in the appropriate reminder system. The [employer] ([employer]) has developed recommendations for screening MRI of the breast s in certain patient populations, to be used in conjunction with mammography. Breast MRI surveillanc e may be appropriate for women with more than 20% lifetime risk of developing breast cancer as deter mined by genetic testing, significant family history of the disease, or history of mantle radiation f or Hodgkins Disease. ACR Practice Guidelines 2008. DBT Technology DBT is a type of tomographic mammography. With conventional mammography, overlapping breast tissue ma y make lesions difficult to detect, even with good compression. DBT uses an x-ray tube that rotates a round the breast, taking images at different angles. These images are then combined to create thin sl ices of the breast that the radiologist can view as a 3D reconstruction. The [employer] unit can perform full-field digital mammograms (2D imaging); or DBT (3D imaging); or both, in a combination mode that quickly performs both the mammogram and the tomosynthesis scan while the breast is still compressed. PQRS 6045F: Fluoroscopic imaging is not utilized for breast tomosynthesis. TECHNICAL DOCUMENTATION: FINDING NUMBER: (1) ASSESSMENT: (1) JOB ID: [id number] [employer]- All Rights Reserved Reading location - IP/workstation name: [email or web address]
== END ==
LOC: WI 10:04
PROVIDERS: ATTEND Physician Assistant
DX: N63.20 Unspecified lump in the left breast, unspecified quadrant (principal)
CPT/HCPCS: 76642; 77066; G0279; 77062